=== PATIENT | male | born 1940 | race American Indian/Alaskan Native ===

== ENCOUNTER 2020-05-03 08:56 | Emergency (ER) | payer MEDICARE, OTHER ==
[2020-05-03] MEDS ORDERED: ONDANSETRON 4 MG/2 ML INJ IV ONE (11:02)
[2020-05-03] MEDS ORDERED: FAMOTIDINE 20 MG/2 ML INJ IV ONE (11:02)
--- NOTE | 2020-05-03 11:03 | Emergency Department Report ---
ED General Adult HPI - General Chief complaint: Abdominal Pain Stated complaint: GENERAL ILLNESS PUI?: No Time Seen by Provider: 05/03/20 10:45 Source: patient, EMS ([facility] RN notes reviewed, old records revi yoni Mode of arrival: Stretcher Limitations: Other (The patient is a poor historian) - History of Present Illness Initial comments: The patient was evaluated in the emergency department for symptoms described in the history of present illness. He/she was evaluated in the context of the global COVID-19 pandemic, which necessitated consideration that the patient might be at risk for infection with the virus that causes COVID-19. Institutional protocols and algorithms that pertain to the evaluation of pa tients at risk for COVID-19 are in a state of rapid change based on information released by regulatory bodies including the CDC and federal and state organizations. These policies and algorithms were followed during the patient's care in the emergency department. Please note that these policies, procedures and recommendations changed on a rapid basis. EMS documentation not available at time of chart dictation During the entire history and physical examination, I am charge aide and escorted by nurse Wendy Vaca The patient is a 79-year-old gentleman. He typically follows with the [facility]. He has a history of heart disease, hypertension, COPD, on intermittent home oxygen, high cholesterol, BPH, gout, sleep apnea, supposed to be on CPAP, arthritis, and diabetes. He presents to the ER today with a complaint of abdominal cramping, "I feels like my stomach is flip-flopping." He denies headache, neck pain, chest pain. He has chronic shortness of breath. He reportedly urinated on the stretcher prior to my personal evaluation. He reports some difficulty urinating. He believes he has dark stool, but he is not certain. His abdominal cramping is present for 1 week. He has difficulty describing qualitative nature of his symptoms, exacerbating, relieving, or radiation factors. At the moment, he is straining to urinate and a urinary basin, although he de nies testicular pain. -: days(s), week(s) Location: abdomen Quality: other Consistency: other Improves with: other Worsens with: other Associated Symptoms: other - Related Data Home Medications Medication Instructions Recorded Confirmed Last Taken Brimonidine/Timolol 0.2-0.5% 1 drop OU QHS 05/16/15 05/03/20 05/21/15 Dorzolamide-Timolol Eye Drops 1 drop OU BID 05/16/15 05/03/20 05/21/15 Finasteride 5 mg PO DAILY 05/16/15 05/03/20 05/21/15 Fosinopril Sodium 20 mg PO DAILY 05/16/15 05/03/20 05/22/15 Lasix TAB 20 mg PO DAILY 05/16/15 05/03/20 05/21/15 Metoprolol 100 mg PO DAILY 05/16/15 05/03/20 05/21/15 AtorvaSTATin [Lipitor] 40 mg PO QHS 05/03/20 05/03/20 Unknown Fosinopril Sodium 40 mg PO QDAY 05/03/20 05/03/20 Unknown Insulin NPH Hum/Reg Insulin Hm 100 unit SQ DAILY 05/03/20 05/03/20 Unknown [Novolin 70-30 Flexpen] Tamsulosin [Flomax] 0.4 mg PO QDAY 05/03/20 05/03/20 Unknown allopurinoL [Zyloprim] 300 mg PO QDAY 05/03/20 05/03/20 Unknown Previous Rx's Medication Instructions Recorded Last Taken Type Albuterol Sulfate [Proair 90 mcg IH Q4HR PRN #2 aer.pow.ba 05/03/20 Unknown Rx Respiclick] Emily Root [Emily] 250 mg PO QID PRN #30 capsule 05/03/20 Unknown Rx Ondansetron [Zofran Odt] 4 mg PO Q8HR PRN #20 tab.rapdis 05/03/20 Unknown Rx Allergies Allergy/AdvReac Type Severity Reaction Status Date / Time atenolol Allergy Anaphylaxis Verified 05/03/20 09:54 lisinopril Allergy Anaphylaxis Verified 05/03/20 09:54 Penicillins Allergy Hives Verified 05/03/20 09:17 ED Review of Systems ROS: Stated complaint: GENERAL ILLNESS Other details as noted in HPI Constitutional: denies: fever ENT: denies: congestion Respiratory: cough (Chronic cough) Cardiovascular: denies: chest pain Gastrointestinal: nausea Genitourinary: other (Urinary hesitancy) Musculoskeletal: denies: back pain (Denies acute back pain) Neurological: denies: weakness (No focal extremity weakness) Hematological/Lymphatic: denies: easy bleeding ED Past Medical Hx - Past Medical History Hx Hypertension: Yes Hx Diabetes: Yes Hx GERD: Yes Hx Arthritis: Yes Hx COPD: Yes (02/2 liters nc) - Social History Smoking Status: Never Smoker Substance Use Type: None - Medications Home Medications: Home Medications Medication Instructions Recorded Confirmed Last Taken Type Brimonidine/Timolol 0.2-0.5% 1 drop OU QHS 05/16/15 05/03/20 05/21/15 History Dorzolamide-Timolol Eye Drops 1 drop OU BID 05/16/15 05/03/20 05/21/15 History Finasteride 5 mg PO DAILY 05/16/15 05/03/20 05/21/15 History Fosinopril Sodium 20 mg PO DAILY 05/16/15 05/03/20 05/22/15 History Lasix TAB 20 mg PO DAILY 05/16/15 05/03/20 05/21/15 History Metoprolol 100 mg PO DAILY 05/16/15 05/03/20 05/21/15 History Albuterol Sulfate [Proair 90 mcg IH Q4HR PRN #2 aer.pow.ba 05/03/20 Unknown Rx Respiclick] AtorvaSTATin [Lipitor] 40 mg PO QHS 05/03/20 05/03/20 Unknown History Fosinopril Sodium 40 mg PO QDAY 05/03/20 05/03/20 Unknown History Emily Root [Emily] 250 mg PO QID PRN #30 capsule 05/03/20 Unknown Rx Insulin NPH Hum/Reg Insulin Hm 100 unit SQ DAILY 05/03/20 05/03/20 Unknown History [Novolin 70-30 Flexpen] Ondansetron [Zofran Odt] 4 mg PO Q8HR PRN #20 tab.rapdis 05/03/20 Unknown Rx Tamsulosin [Flomax] 0.4 mg PO QDAY 05/03/20 05/03/20 Unknown History allopurinoL [Zyloprim] 300 mg PO QDAY 05/03/20 05/03/20 Unknown History ED Physical Exam - General Limitations: Other (Patient is a poor historian) General appearance: alert, in no apparent distress - Head Head exam: Present: atraumatic, normocephalic - Eye Eye exam: Present: normal appearance, EOMI - ENT ENT exam: Present: normal exam, mucous membranes moist, normal external ear exam - Neck Neck exam: Present: normal inspection, full ROM. Absent: tenderness, meningismus - Respiratory Respiratory exam: Present: normal lung sounds bilaterally. Absent: respiratory distress - Cardiovascular Cardiovascular Exam: Present: regular rate, normal rhythm, normal heart sounds. Absent: bradycardia, tachycardia, irregular rhythm, systolic murmur, diastolic murmur, rubs, gallop - GI/Abdominal GI/Abdominal exam: Present: soft. Absent: distended, tenderness, guarding, rebound, rigid, pulsatile mass - Rectal Rectal exam: Present: normal inspection, normal rectal tone, heme (-) stool. Absent: heme (+) stool, black stool, bloody stool - exam: Present: normal inspection External exam: Present: normal external exam, other (Chaperoned by nurse Wendy Vaca) - Extremities Exam Extremities exam: Present: normal inspection, full ROM, pedal edema (2+ edema in the bilateral lower extremities. The patient states this is chronic.) - Back Exam Back exam: Present: normal inspection. Absent: tenderness, CVA tenderness (R), CVA tenderness (L), paraspinal tenderness, vertebral tenderness - Neurological Exam Neurological exam: Present: alert, other (No facial droop. Tongue midline. E xtraocular movements intact bilaterally. Facial sensation intact to light touch in V1, V2, V3 distribution bilaterally. 5 and a 5 strength in 4 extremities. Sensation intact to light touch in 4 extremities.) - Psychiatric Psychiatric exam: Present: anxious - Skin Skin exam: Present: warm, dry, intact, normal color. Absent: rash ED Course Vital Signs 05/03/20 05/03/20 05/03/20 09:20 10:00 10:46 Temperature 97.8 F Pulse Rate 68 Respiratory 17 Rate Blood Pressure 168/83 142/76 Blood Pressure 168/83 [Left] O2 Sat by Pulse 95 97 93 Oximetry 05/03/20 05/03/20 12:00 14:00 Temperature Pulse Rate Respiratory Rate Blood Pressure 157/71 153/69 Blood Pressure [Left] O2 Sat by Pulse 91 92 Oximetry - Reevaluation(s) Reevaluation #1: 05/03/20 12:54 Differential diagnosis, including but not limited to: Constipation, colitis, diverticulitis, BPH, urinary tract infection, obstruction, chronic lower extremity edema Assessment and plan: 79-year-old gentleman who is afebrile with reassuring vital signs with resolved tachycardia, with poorly characterized abdominal discomfort. Given advanced age, we will obtain CT scan of the abdomen pelvis. We will treat his symptoms. Laboratory studies so far are fairly unremarkable. Patient resting comfortably in his stretcher, and in no acute distress. Reevaluation #2: 05/03/20 15:28 Patient observed for hours without clinical deterioration. At the moment, saturating at 95% on room air. CT scan abdomen pelvis reviewed and appreciated. The patient has not endorsed cough, or mucus production. He has no focal pulmonary findings. curb 65 score 1 points Low risk group: 2.7% 30-day mortality. Consider outpatient treatment. Patient observed in this department for hours, without any significant respiratory distress. I also discussed the pertinent history, physical, laboratory studies and imaging findings with my hospital physician on-call, Dr. Roger James He also advises that discharged with oral antibiotics would be reasonable. I am in agreement with this plan. Clinically do not have a high suspicion for pneumonia. He will need to follow-up with his outpatient primary care doctor. 05/03/20 15:30 ED Medical Decision Making - Lab Data Result diagrams: 05/03/20 11:08 05/03/20 11:08 Vital Signs 05/03/20 09:20 Temperature 97.8 F Pulse Rate 68 Respiratory 17 Rate Blood Pressure 168/83 [Left] O2 Sat by Pulse 95 Oximetry Lab Results 05/03/20 05/03/20 05/03/20 Range/Units 11:08 11:08 11:08 WBC 8.8 (4.5-11.0) K/mm3 RBC 3.63 L (3.65-5.03) M/mm3 Hgb 11.1 L (11.8-15.2) gm/dl Hct 34.1 L (35.5-45.6) % MCV 94 (84-94) fl MCH 31 (28-32) pg MCHC 33 (32-34) % RDW 16.4 H (13.2-15.2) % Plt Count 241 (140-440) K/mm3 Lymph % (Auto) 10.8 L (13.4-35.0) % [place] % (Auto) 4.5 (0.0-7.3) % Eos % (Auto) 0.6 (0.0-4.3) % Baso % (Auto) 0.6 (0.0-1.8) % Lymph # 1.0 L (1.2-5.4) K/mm3 [place] # 0.4 (0.0-0.8) K/mm3 Eos # 0.1 (0.0-0.4) K/mm3 Baso # 0.0 (0.0-0.1) K/mm3 Seg Neutrophils % 83.5 H (40.0-70.0) % Seg Neutrophils # 7.3 (1.8-7.7) K/mm3 PT 14.6 (12.2-14.9) Sec. INR 1.12 (0.87-1.13) Sodium 136 L (137-145) mmol/L Potassium 3.6 (3.6-5.0) mmol/L Chloride 95.1 L (98-107) mmol/L Carbon Dioxide 23 (22-30) mmol/L Anion Gap 22 mmol/L BUN 15 (9-20) mg/dL Creatinine 0.8 (0.8-1.3) mg/dL Estimated GFR > 60 ml/min BUN/Creatinine Ratio 19 % Glucose 231 H (75-100) mg/dL Calcium 9.5 (8.4-10.2) mg/dL Magnesium (1.7-2.3) mg/dL Total Creatine Kinase (55-170) units/L Lipase 33 (13-60) units/L TSH (0.270-4.200) mlU/mL Urine Color (Yellow) Urine Turbidity (Clear) Urine pH (5.0-7.0) Ur Specific [place] (1.003-1.030) Urine Protein (Negative) mg/dL Urine Glucose (UA) (Negative) mg/dL Urine Ketones (Negative) mg/dL Urine Blood (Negative) Urine Nitrite (Negative) Urine Bilirubin (Negative) Urine Urobilinogen (<2.0) mg/dL Ur Leukocyte Esterase (Negative) Urine WBC (Auto) (0.0-6.0) /HPF Urine RBC (Auto) (0.0-6.0) /HPF U Epithel Cells (Auto) (0-13.0) /HPF 05/03/20 05/03/20 05/03/20 Range/Units 11:08 11:08 11:43 WBC (4.5-11.0) K/mm3 RBC (3.65-5.03) M/mm3 Hgb (11.8-15.2) gm/dl Hct (35.5-45.6) % MCV (84-94) fl MCH (28-32) pg MCHC (32-34) % RDW (13.2-15.2) % Plt Count (140-440) K/mm3 Lymph % (Auto) (13.4-35.0) % [place] % (Auto) (0.0-7.3) % Eos % (Auto) (0.0-4.3) % Baso % (Auto) (0.0-1.8) % Lymph # (1.2-5.4) K/mm3 [place] # (0.0-0.8) K/mm3 Eos # (0.0-0.4) K/mm3 Baso # (0.0-0.1) K/mm3 Seg Neutrophils % (40.0-70.0) % Seg Neutrophils # (1.8-7.7) K/mm3 PT (12.2-14.9) Sec. INR (0.87-1.13) Sodium (137-145) mmol/L Potassium (3.6-5.0) mmol/L Chloride (98-107) mmol/L Carbon Dioxide (22-30) mmol/L Anion Gap mmol/L BUN (9-20) mg/dL Creatinine (0.8-1.3) mg/dL Estimated GFR ml/min BUN/Creatinine Ratio % Glucose (75-100) mg/dL Calcium (8.4-10.2) mg/dL Magnesium 1.90 (1.7-2.3) mg/dL Total Creatine Kinase 55 (55-170) units/L Lipase (13-60) units/L TSH 0.473 (0.270-4.200) mlU/mL Urine Color Straw (Yellow) Urine Turbidity Hazy (Clear) Urine pH 7.0 (5.0-7.0) Ur Specific [place] 1.008 (1.003-1.030) Urine Protein <15 mg/dl (Negative) mg/dL Urine Glucose (UA) 150 (Negative) mg/dL Urine Ketones 20 (Negative) mg/dL Urine Blood Lg (Negative) Urine Nitrite Neg (Negative) Urine Bilirubin Neg (Negative) Urine Urobilinogen < 2.0 (<2.0) mg/dL Ur Leukocyte Esterase Neg (Negative) Urine WBC (Auto) 1.0 (0.0-6.0) /HPF Urine RBC (Auto) 90.0 (0.0-6.0) /HPF U Epithel Cells (Auto) 1.0 (0-13.0) /HPF - EKG Data -: EKG Interpreted by [place] EKG shows normal: sinus rhythm Rate: normal - EKG Data When compared to previous EKG there are: previous EKG unavailable 05/03/20 12:50 EKG today shows sinus rhythm, tachycardia, normal axis, QTC is prolonged, motion artifact, not a STEMI. The EKG is abnormal. - Radiology Data Radiology results: report reviewed, image reviewed ABDOMEN 2 VIEWS INDICATION / CLINICAL INFORMATION: Abdominal Pain. COMPARISON: None available. FINDINGS: TUBES / LINES: None. BOWEL GAS PATTERN: The stomach is moderately distended by gas. No dilated small bowel/colonic loops. FREE AIR / EXTRALUMINAL GAS: None seen. ADDITIONAL FINDINGS: There is moderate lumbar spondylosis with severe left hip arthritis. A right hip arthroplasty is unremarkable as visualized. CHEST: Visualized chest shows no significant abnormality. IMPRESSION: Nonspecific moderate gastric distention. Signer Name: Bradford Ingram MD Signed: 05/03/2020 10:49 AM Workstation Name: [id number] CT ABDOMEN AND PELVIS WITH CONTRAST INDICATION / CLINICAL INFORMATION: acute abd pain. TECHNIQUE: Axial CT images were obtained through the abdomen and pelvis after 100 cc of Omnipaque 300 IV contrast. Sagittal and coronal reformatted images. All CT scans at this location are performed using CT dose reduction for ALARA by means of automated exposure control. COMPARISON: None available. FINDINGS: LOWER CHEST: A rounded infiltrate in the left lower lobe measuring up to 3.7 cm is partially imaged. The right lung base is clear. LIVER: No significant abnormality. GALLBLADDER: Multiple calcified gallstones measuring up to 8 mm. No biliary dilatation or inflammation. BILE DUCTS: No significant abnormality. PANCREAS: Mildly atrophic. A 2.1 cm well-circumscribed solid enhancing lesion is identified in the tail of the pancreas. This is unchanged since CT chest dated 08/27/2018. SPLEEN: No significant abnormality. ADRENALS: No significant abnormality. RIGHT KIDNEY and URETER: There is mild multifocal cortical scarring throughout the right kidney. No focal lesion or nephrolithiasis. LEFT KIDNEY and URETER: 2 simple appearing left renal cysts measure up to 1.5 cm. STOMACH and SMALL BOWEL: No significant abnormality. COLON: Mild diverticulosis of the distal colon is evident. No inflammatory changes. APPENDIX: No significant abnormality. PERITONEUM: No free fluid. No free air. No fluid collection. LYMPH NODES: An enlarged and enhancing right external iliac lymph node measures 2.3 x 2.7 cm. An enlarged right retrocrural lymph node measures 1.4 cm in short axis. An enlarged left retrocrural lymph node measures 2.4 cm in short axis. No additional adenopathy is detected. AORTA and ARTERIES: Mild diffuse calcifications in the aorta. No aneurysm or stenosis. IVC and VEINS: No significant abnormality. URINARY BLADDER: The bladder is mildly distended. No filling defect or wall abnormality. REPRODUCTIVE ORGANS: No significant abnormality. ADDITIONAL FINDINGS: None. SKELETAL SYSTEM: Mild thoracolumbar spondylosis. Stable appearance of the right hip prosthesis. IMPRESSION: Left lower lobe infiltrate concerning for pneumonia, partially imaged. Cholelithiasis. 2.1 cm solid lesion in the tail the pancreas which is unchanged since the previous CT chest. The etiology of this is unclear. Enlarged lymph nodes in the retrocrural chains and right external iliac chain. A neoplastic process cannot be excluded. Diverticulosis of the distal colon. No acute inflammatory process is appreciated in the abdomen. Signer Name: William Freeman Jr, MD Signed: 05/03/2020 1:00 PM Workstation Name: [id number] Critical care attestation.: If time is entered above; I have spent that time in minutes in the direct care of this critically ill patient, excluding procedure time. ED Disposition Clinical Impression: Urinary hesitancy, Abdominal discomfort, Dependent edema, Pulmonary infiltrate, Abnormal abdominal CT scan Disposition: DC-01 TO HOME OR SELFCARE Is pt being admited?: No Does the pt Need Aspirin: No Condition: Stable Additional Instructions: Do not take metformin medication for the next 2 days, if patient takes this medication. Cultures were sent today, and results will be available in the next 3 to 5 days. Please have a primary care doctor contact the medical record department to obtain culture results. Please follow-up with your primary care doctor within the next 3 to 5 days for repeat checkup/evaluation. Patient had CT scan of the abdomen pelvis today which demonstrated a number of abnormalities which need to be followed up by a primary care doctor to evaluate for potential cancer, tumor, malignancy. Take the antibiotics as directed, continue current outpatient medications otherwise, take the breathing medication as needed/directed. Advance diet as tolerated, avoid consumption of Motrin, ibuprofen, Naprosyn, Aleve, heavy and spicy foods. Please return to the emergency room right away with new pain, worsening pain, migration of pain, intractable vomiting, change in mental status, confusion, inability to tolerate liquid feeds, new, worsened or different symptoms not present on the initial emergency room evaluation Referrals: YADIEL COX MD [Staff Physician] - 3-5 Days KENDALL PABON MD [Staff Physician] - 3-5 Days
[2020-05-03 11:51] LABS: Bilirubin,Urine NEG (Negative); Blood,Urine LG (Negative); Color,Urine Straw (Yellow); Protein,Urine <15 mg/dL mg/dL (Negative); Urobilinogen,Urine < 2.0 mg/dL (<2.0)
--- NOTE | 2020-05-03 11:54 | XRay Report ---
ABDOMEN 2 VIEWS INDICATION / CLINICAL INFORMATION: Abdominal Pain. COMPARISON: None available. FINDINGS: TUBES / LINES: None. BOWEL GAS PATTERN: The stomach is moderately distended by gas. No dilated small bowel/colonic loops. FREE AIR / EXTRALUMINAL GAS: None seen. ADDITIONAL FINDINGS: There is moderate lumbar spondylosis with severe left hip arthritis. A right hip arthroplasty is unremarkable as visualized. CHEST: Visualized chest shows no significant abnormality. IMPRESSION: Nonspecific moderate gastric distention. Signer Name: Bradford Ingram MD Signed: 05/03/2020 11:49 AM Workstation Name: [id number]
[2020-05-03 12:05] LABS: Basophils % (Auto) 0.6 % (0.0-1.8); Eosinophils # (Auto) 0.1 K/mm3 (0.0-0.4); Eosinophils % (Auto) 0.6 % (0.0-4.3); Hematocrit 34.1 % (35.5-45.6); Hemoglobin 11.1 gm/dl (11.8-15.2); Lymphocytes % (Auto) 10.8 % (13.4-35.0); Mean Corpuscular HGB Conc 33 % (32-34); Mean Corpuscular Volume 94 fl (84-94); Monocytes # (Auto) 0.4 K/mm3 (0.0-0.8); Monocytes % (Auto) 4.5 % (0.0-7.3); Platelet Count 241 K/mm3 (140-440); Red Blood Count 3.63 M/mm3 (3.65-5.03); Red Cell Distribution Width 16.4 % (13.2-15.2)
[2020-05-03 12:14] LABS: INR 1.12 (0.87-1.13)
[2020-05-03 12:24] LABS: BUN/Creatinine Ratio 19; Blood Urea Nitrogen 15 mg/dL (9-20); Calcium 9.5 mg/dL (8.4-10.2); Hemolysis Index 13
--- NOTE | 2020-05-03 14:04 | Cat Scan Report ---
CT ABDOMEN AND PELVIS WITH CONTRAST INDICATION / CLINICAL INFORMATION: acute abd pain. TECHNIQUE: Axial CT images were obtained through the abdomen and pelvis after 100 cc of Omnipaque 300 IV contras t. Sagittal and coronal reformatted images. All CT scans at this location are performed using CT dose reduction for ALARA by means of automated exposure control. COMPARISON: None available. FINDINGS: LOWER CHEST: A rounded infiltrate in the left lower lobe measuring up to 3.7 cm is partially imaged. The right lung base is clear. LIVER: No significant abnormality. GALLBLADDER: Multiple calcified gallstones measuring up to 8 mm. No biliary dilatation or inflammatio n. BILE DUCTS: No significant abnormality. PANCREAS: Mildly atrophic. A 2.1 cm well-circumscribed solid enhancing lesion is identified in the ta il of the pancreas. This is unchanged since CT chest dated 08/27/2018. SPLEEN: No significant abnormality. ADRENALS: No significant abnormality. RIGHT KIDNEY and URETER: There is mild multifocal cortical scarring throughout the right kidney. No f ocal lesion or nephrolithiasis. LEFT KIDNEY and URETER: 2 simple appearing left renal cysts measure up to 1.5 cm. STOMACH and SMALL BOWEL: No significant abnormality. COLON: Mild diverticulosis of the distal colon is evident. No inflammatory changes. APPENDIX: No significant abnormality. PERITONEUM: No free fluid. No free air. No fluid collection. LYMPH NODES: An enlarged and enhancing right external iliac lymph node measures 2.3 x 2.7 cm. An enla rged right retrocrural lymph node measures 1.4 cm in short axis. An enlarged left retrocrural lymph n ode measures 2.4 cm in short axis. No additional adenopathy is detected. AORTA and ARTERIES: Mild diffuse calcifications in the aorta. No aneurysm or stenosis. IVC and VEINS: No significant abnormality. URINARY BLADDER: The bladder is mildly distended. No filling defect or wall abnormality. REPRODUCTIVE ORGANS: No significant abnormality. ADDITIONAL FINDINGS: None. SKELETAL SYSTEM: Mild thoracolumbar spondylosis. Stable appearance of the right hip prosthesis. IMPRESSION: Left lower lobe infiltrate concerning for pneumonia, partially imaged. Cholelithiasis. 2.1 cm solid lesion in the tail the pancreas which is unchanged since the previous CT chest. The etio logy of this is unclear. Enlarged lymph nodes in the retrocrural chains and right external iliac chain. A neoplastic process c annot be excluded. Diverticulosis of the distal colon. No acute inflammatory process is appreciated in the abdomen. Signer Name: William Freeman Jr, MD Signed: 05/03/2020 2:00 PM Workstation Name: [id number]
[2020-05-03] MEDS ORDERED: levoFLOXacin 500 MG TAB PO ONE (15:34)
[2020-05-03 17:22] VITALS: BP 154/80
== END 2020-05-03 17:23 | disposition home or self-care (01) ==
LOC: ED 08:56
DX: R39.11 Hesitancy of micturition (principal); R60.9 Edema, unspecified; R91.8 Other nonspecific abnormal finding of lung field; R10.9 Unspecified abdominal pain; I10 Essential (primary) hypertension; K21.9 Gastro-esophageal reflux disease without esophagitis; E11.9 Type 2 diabetes mellitus without complications; J44.9 Chronic obstructive pulmonary disease, unspecified; M19.91 Primary osteoarthritis, unspecified site; Z79.4 Long term (current) use of insulin; Z79.899 Other long term (current) drug therapy; Z88.0 Allergy status to penicillin; Z88.8 Allergy status to other drugs, medicaments and biological substances
CPT/HCPCS: 36415; 74019; 74177; 80048; 81001; 82550; 83690; 83735; 84443; 85025; 85610; 87086; 93005; 96374; 96375; 99285; J2405; Q9967

== ENCOUNTER 2020-05-05 19:59 | Emergency (ER) | payer MEDICARE, OTHER ==
--- NOTE | 2020-05-05 20:16 | Emergency Department Report ---
ED General Adult HPI - General Chief complaint: Medical Clearance Stated complaint: constipation PUI?: No Time Seen by Provider: 05/05/20 20:11 Source: patient, EMS Mode of arrival: Stretcher Limitations: No Limitations - History of Present Illness Initial comments: Patient is a 79-year-old male that presents emergency room with complaints of constipation. Patient states his last bowel movement was 5 days ago. Patient states his home health nurse was at the house and sent him here via EMS. Patient states he took an oral medication and a suppository and no bowel movement today. Patient denies nausea and vomiting. Patient denies fever and chills. Patient denies abdominal pain. Patient denies chest pain or shortness of breath. Patient denies dysuria. Patient denies blood per rectum. Patient brought in by EMS. Report received from EMS. EMS states that the patient was given Epson salts drink and a suppository and patient did not have a bowel movement. Patient's vital signs stable during transport. Patient had no complaints to EMS. Patient lives at home with . EMS states that the patient has home health and the home health nurse called EMS transport. Patient denies recent travel. Patient denies recent international travel. Patient denies exposure to the novel coronavirus. Patient denies sick contacts. Patient denies fever and chills. Patient denies cough. Patient denies diarrhea. Patient denies coming in contact with anybody with symptoms of the novel coronavirus. -: Sudden Severity scale (0 -10): 0 Consistency: constant Improves with: none Worsens with: none Associated Symptoms: denies: confusion, chest pain, cough, diaphoresis, fever/chills, headaches, loss of appetite, malaise, nausea/vomiting, rash, seizure, shortness of breath, syncope, weakness Treatments Prior to Arrival: other (Suppository) - Related Data Home Medications Medication Instructions Recorded Confirmed Last Taken Brimonidine/Timolol 0.2-0.5% 1 drop OU QHS 05/16/15 05/03/20 05/21/15 Dorzolamide-Timolol Eye Drops 1 drop OU BID 05/16/15 05/03/20 05/21/15 Finasteride 5 mg PO DAILY 05/16/15 05/03/20 05/21/15 Fosinopril Sodium 20 mg PO DAILY 05/16/15 05/03/20 05/22/15 Lasix TAB 20 mg PO DAILY 05/16/15 05/03/20 05/21/15 Metoprolol 100 mg PO DAILY 05/16/15 05/03/20 05/21/15 AtorvaSTATin [Lipitor] 40 mg PO QHS 05/03/20 05/03/20 Unknown Fosinopril Sodium 40 mg PO QDAY 05/03/20 05/03/20 Unknown Insulin NPH Hum/Reg Insulin Hm 100 unit SQ DAILY 05/03/20 05/03/20 Unknown [Novolin 70-30 Flexpen] Tamsulosin [Flomax] 0.4 mg PO QDAY 05/03/20 05/03/20 Unknown allopurinoL [Zyloprim] 300 mg PO QDAY 05/03/20 05/03/20 Unknown Previous Rx's Medication Instructions Recorded Last Taken Type Albuterol Sulfate [Proair 90 mcg IH Q4HR PRN #2 [email or web address] 05/03/20 Unknown Rx Respiclick] Emily Root [Emily] 250 mg PO QID PRN #30 capsule 05/03/20 Unknown Rx levoFLOXacin [Levaquin TAB] 500 mg PO QDAY #5 tablet 05/03/20 Unknown Rx Sennosides/Docusate Sodium 1 each PO BID #30 tablet 05/05/20 Unknown Rx [Senna-S 8.6-50 mg Tablet] Allergies Allergy/AdvReac Type Severity Reaction Status Date / Time atenolol Allergy Anaphylaxis Verified 05/03/20 09:54 lisinopril Allergy Anaphylaxis Verified 05/03/20 09:54 Penicillins Allergy Hives Verified 05/03/20 09:17 ED Review of Systems ROS: Stated complaint: ABD PAIN Other details as noted in HPI Constitutional: denies: chills, fever Eyes: denies: eye pain, eye discharge, vision change ENT: denies: ear pain, throat pain Respiratory: denies: cough, shortness of breath, wheezing Cardiovascular: denies: chest pain, palpitations Endocrine: no symptoms reported Gastrointestinal: constipation. denies: abdominal pain, nausea, vomiting, diarrhea, hematemesis, melena, hematochezia Genitourinary: denies: urgency, dysuria Musculoskeletal: denies: back pain, joint swelling, arthralgia Skin: denies: rash, lesions Neurological: denies: headache, weakness, paresthesias Psychiatric: denies: anxiety, depression Hematological/Lymphatic: denies: easy bleeding, easy bruising ED Past Medical Hx - Past Medical History Previous Medical History?: Yes Hx Hypertension: Yes Hx Diabetes: Yes Hx GERD: Yes Hx Arthritis: Yes Hx COPD: Yes (022 liters nc) - Surgical History Past Surgical History?: No - Family History Family history: no significant - Social History Smoking Status: Never Smoker Substance Use Type: None - Medications Home Medications: Home Medications Medication Instructions Recorded Confirmed Last Taken Type Brimonidine/Timolol 0.2-0.5% 1 drop OU QHS 05/16/15 05/03/20 05/21/15 History Dorzolamide-Timolol Eye Drops 1 drop OU BID 05/16/15 05/03/20 05/21/15 History Finasteride 5 mg PO DAILY 05/16/15 05/03/20 05/21/15 History Fosinopril Sodium 20 mg PO DAILY 05/16/15 05/03/20 05/22/15 History Lasix TAB 20 mg PO DAILY 05/16/15 05/03/20 05/21/15 History Metoprolol 100 mg PO DAILY 05/16/15 05/03/20 05/21/15 History Albuterol Sulfate [Proair 90 mcg IH Q4HR PRN #2 [email or web address] 05/03/20 Unknown Rx Respiclick] AtorvaSTATin [Lipitor] 40 mg PO QHS 05/03/20 05/03/20 Unknown History Fosinopril Sodium 40 mg PO QDAY 05/03/20 05/03/20 Unknown History Emily Root [Emily] 250 mg PO QID PRN #30 capsule 05/03/20 Unknown Rx Insulin NPH Hum/Reg Insulin Hm 100 unit SQ DAILY 05/03/20 05/03/20 Unknown History [Novolin 70-30 Flexpen] Tamsulosin [Flomax] 0.4 mg PO QDAY 05/03/20 05/03/20 Unknown History allopurinoL [Zyloprim] 300 mg PO QDAY 05/03/20 05/03/20 Unknown History levoFLOXacin [Levaquin TAB] 500 mg PO QDAY #5 tablet 05/03/20 Unknown Rx Sennosides/Docusate Sodium 1 each PO BID #30 tablet 05/05/20 Unknown Rx [Senna-S 8.6-50 mg Tablet] ED Physical Exam - General Limitations: No Limitations General appearance: alert, in no apparent distress - Head Head exam: Present: atraumatic, normocephalic - Eye Eye exam: Present: normal appearance, PERRL Pupils: Present: normal accommodation - ENT ENT exam: Present: mucous membranes moist - Neck Neck exam: Present: normal inspection - Respiratory Respiratory exam: Present: normal lung sounds bilaterally. Absent: respiratory distress, wheezes, rales - Cardiovascular Cardiovascular Exam: Present: regular rate, normal rhythm. Absent: systolic murmur, diastolic murmur, rubs, gallop - GI/Abdominal GI/Abdominal exam: Present: soft, normal bowel sounds. Absent: distended, tenderness, guarding, rebound, rigid - Rectal Rectal exam: Present: deferred - Extremities Exam Extremities exam: Present: normal inspection - Back Exam Back exam: Present: normal inspection - Neurological Exam Neurological exam: Present: alert, oriented X3 - Psychiatric Psychiatric exam: Present: normal affect, normal mood - Skin Skin exam: Present: warm, dry, intact, normal color. Absent: rash ED Course Vital Signs 05/05/20 20:36 Temperature 97.7 F Pulse Rate 87 Respiratory 18 Rate Blood Pressure 127/57 [Left] O2 Sat by Pulse 95 Oximetry - Reevaluation(s) Reevaluation #1: Patient had a large soft bowel movement. No blood noted in stool. Hemoccult negative. 05/05/20 20:45 Reevaluation #2: I discussed all results and clinical findings with patient. I discussed plan of care with patient. Patient agrees with plan of care. Patient is stable for discharge. Patient will be discharged home. Patient given discharge instructions. Patient voiced understanding of discharge instructions. 05/05/20 21:30 Reevaluation #3: Patient had another large bowel movement. 05/05/20 22:07 ED Medical Decision Making - Radiology Data Radiology results: report reviewed interpreted by me: Flat plate abdominal x-ray: No obstruction noted. Right hip prosthesis noted. No fractures noted. ABDOMEN 1 VIEW INDICATION / CLINICAL INFORMATION: Constipation. COMPARISON: 05/03/20. FINDINGS: TUBES / LINES: None. BOWEL GAS PATTERN: There is mild gaseous distention of the stomach, significantly improved. I see no evidence of bowel obstruction or mass effect. No significant stool is present in the colon on the current exam. FREE AIR / EXTRALUMINAL GAS: None seen. ADDITIONAL FINDINGS: There are degenerative changes involving the lumbar spine and left hip. A right hip prosthesis is present. IMPRESSION: 1. No significant stool in the colon. 2. Gaseous distention of the stomach has improved since the prior study performed 2 days ago. - Medical Decision Making Patient is a 79-year-old male that presents emergency room with complaints of constipation. Patient denied any other symptoms. Patient denied abdominal pain and nausea and vomiting. Patient had a benign physical exam. Patient had a CT scan and a flat plate on 05/03/2020. Patient's chart was reviewed from 05/03/2020. Patient had a repeat flatplate and it did not show any obstruction. While the patient was in the ER, the patient had a bowel movement. Patient's bowel movement was large and soft and there was no blood noted and Hemoccult was negative. Patient stable for discharge. Patient given discharge instructions. Patient will be discharged back home. - Differential Diagnosis Constipation Critical care attestation.: If time is entered above; I have spent that time in minutes in the direct care of this critically ill patient, excluding procedure time. ED Disposition Clinical Impression: Constipation Qualifiers: Constipation type: unspecified constipation type Qualified Code(s): K59.00 - Constipation, unspecified Disposition: TO HOME OR SELFCARE Is pt being admited?: No Does the pt Need Aspirin: No Condition: Stable Instructions: Constipation (ED), High Fiber Diet (ED), Obstipation (ED) Additional Instructions: Patient to follow-up with primary care in 2 to 3 days. Patient to follow-up [facility] in 2 to 3 days. Patient to rest. Patient to increase water. Patient to take Tylenol or ibuprofen as needed for pain. Patient to take meds as directed. Patient to return to the ER if condition worsens, changes or new symptoms arise. Prescriptions: Sennosides/Docusate Sodium [Senna-S 8.6-50 mg Tablet] 1 each PO BID #30 tablet Referrals: PRIMARY CARE, [Primary Care Provider] - 2-3 Days VICENTA WALLER MD [Staff Physician] - 2-3 Days Time of Disposition: 21:36
[2020-05-05 20:37] VITALS: BP 127/57
--- NOTE | 2020-05-05 20:58 | XRay Report ---
ABDOMEN 1 VIEW INDICATION / CLINICAL INFORMATION: Constipation. COMPARISON: 05/03/20. FINDINGS: TUBES / LINES: None. BOWEL GAS PATTERN: There is mild gaseous distention of the stomach, significantly improved. I see no evidence of bowel obstruction or mass effect. No significant stool is present in the colon on the cur rent exam. FREE AIR / EXTRALUMINAL GAS: None seen. ADDITIONAL FINDINGS: There are degenerative changes involving the lumbar spine and left hip. A right hip prosthesis is present. IMPRESSION: 1. No significant stool in the colon. 2. Gaseous distention of the stomach has improved since the prior study performed 2 days ago. Signer Name: Jagdeep Nam MD Signed: 05/05/2020 8:53 PM Workstation Name: [id number]
== END 2020-05-06 09:56 | disposition home or self-care (01) ==
LOC: ED 19:59
DX: K59.00 Constipation, unspecified (principal); I10 Essential (primary) hypertension; E11.9 Type 2 diabetes mellitus without complications; K21.9 Gastro-esophageal reflux disease without esophagitis; M13.88 Other specified arthritis, other site; J44.9 Chronic obstructive pulmonary disease, unspecified; Z79.899 Other long term (current) drug therapy; Z88.0 Allergy status to penicillin; Z88.6 Allergy status to analgesic agent
CPT/HCPCS: 74018; 99283

== ENCOUNTER 2020-05-18 19:17 | Observation (INO) | payer MEDICARE, OTHER ==
[2020-05-18] MEDS ORDERED: SODIUM CHLORIDE 0.9% 1000 ML 1,000 ML ONE (19:28)
[2020-05-18] MEDS ORDERED: SODIUM CHLORIDE 0.9% 1000 ML 1,000 ML IV ONE (19:35)
--- NOTE | 2020-05-18 19:41 | Emergency Department Report ---
ED Altered Mental Status HPI - General Chief Complaint: Overdose Stated Complaint: UNRESPONSIVE/POSS OD Time Seen by Provider: 05/18/20 19:35 Source: patient, EMS Mode of arrival: Stretcher Limitations: Altered Mental Status - History of Present Illness Initial Comments: Patient is 79 years old male with history of recent CVA right-sided weakness, hypertension, diabetes and COPD. Patient brought to the emergency room via EMS from home for evaluation of decreased responsiveness. Patient was found sleeping in his chair with decreased responsiveness per family report. EMS stated that when they arrived patient is in his chair but he is start answering questions. EMS stated that I gave patient Narcan and patient started becoming more awake however patient found to have a blood pressure of 86/45. Patient started on normal saline. Upon arrival to the ER patient is alert and answering questions appropriately. His blood pressure improved to 96/52. Patient stated that he took his water pill and his metoprolol. He stated that he checked his blood pressure before that and it was 88/46. Patient denied any headache. No new focal weakness, numbness or tingling sensation. Patient denied any chest pain or shortness of breath. Patient also denied any fever, chills, cough, abdominal pain, nausea or vomiting. MD Complaint: decreased responsiveness -: unknown Severity: moderate Associated Symptoms: denies other symptoms - Related Data Home Medications Medication Instructions Recorded Confirmed Last Taken Brimonidine/Timolol 0.2-0.5% 1 drop OU QHS 05/16/15 05/09/20 05/21/15 Lasix TAB 20 mg PO DAILY 05/16/15 05/09/20 05/21/15 Metoprolol 100 mg PO DAILY 05/16/15 05/09/20 05/21/15 AtorvaSTATin [Lipitor] 40 mg PO QHS 05/03/20 05/09/20 Unknown Fosinopril Sodium 40 mg PO QDAY 05/03/20 05/09/20 Unknown Albuterol Sulfate [Proair 90 mcg INHALATION PRN 05/09/20 05/09/20 Unknown Respiclick] Plavix 75 mg PO DAILY 05/09/20 05/09/20 Unknown Previous Rx's Medication Instructions Recorded Last Taken Type Albuterol Sulfate [Proair 90 mcg IH Q4HR PRN #2 aer.[email or web address] 05/03/20 Unknown Rx Respiclick] Brimonidine/Timolol 0.2-0.5% 1 drops OU QHS bottle 05/12/20 Unknown Rx [Combigan 0.2-0.5%] Clopidogrel [Plavix] 75 mg PO DAILY tablet 05/12/20 Unknown Rx Famotidine [Pepcid] 20 mg PO BID tablet 05/12/20 Unknown Rx Finasteride [Proscar] 5 mg PO DAILY tablet 05/12/20 Unknown Rx Insulin NPH Hum/Reg Insulin Hm 15 unit SQ BID 30 Days #1 vial 05/12/20 Unknown Rx [Novolin 70-30 Flexpen] Sennosides/Docusate [Senokot S] 1 tab PO BID tablet 05/12/20 Unknown Rx Tamsulosin [Flomax] 0.4 mg PO QDAY capsule 05/12/20 Unknown Rx allopurinoL [Zyloprim] 300 mg PO QDAY tablet 05/12/20 Unknown Rx oxyCODONE /ACETAMINOPHEN [Percocet 1 tab PO Q6H PRN tablet 05/12/20 Unknown Rx 5/325 mg] Allergies Allergy/AdvReac Type Severity Reaction Status Date / Time atenolol Allergy Anaphylaxis Verified 05/09/20 18:49 lisinopril Allergy Anaphylaxis Verified 05/09/20 18:49 Penicillins Allergy Hives Verified 05/09/20 18:49 ED Review of Systems ROS: Stated complaint: UNRESPONSIVE/POSS OD Other details as noted in HPI Comment: All other systems reviewed and negative Constitutional: denies: chills, fever Respiratory: denies: cough, shortness of breath Cardiovascular: denies: chest pain, palpitations Gastrointestinal: denies: abdominal pain, nausea, vomiting, diarrhea, constipation, hematemesis, melena, hematochezia Musculoskeletal: denies: back pain Neurological: weakness (Generalized). denies: headache, numbness, paresthesias, confusion, abnormal gait ED Past Medical Hx - Past Medical History Hx Hypertension: Yes Hx CVA: Yes (CVA Right Sided Deficits) Hx Diabetes: Yes Hx GERD: Yes Hx Arthritis: Yes Hx COPD: Yes (09/26 liters nc) - Social History Smoking Status: Unknown if ever smoked - Medications Home Medications: Home Medications Medication Instructions Recorded Confirmed Last Taken Type Brimonidine/Timolol 0.2-0.5% 1 drop OU QHS 05/16/15 05/09/20 05/21/15 History Lasix TAB 20 mg PO DAILY 05/16/15 05/09/20 05/21/15 History Metoprolol 100 mg PO DAILY 05/16/15 05/09/20 05/21/15 History Albuterol Sulfate [Proair 90 mcg IH Q4HR PRN #2 aer.[email or web address] 05/03/20 05/09/20 Unknown Rx Respiclick] AtorvaSTATin [Lipitor] 40 mg PO QHS 05/03/20 05/09/20 Unknown History Fosinopril Sodium 40 mg PO QDAY 05/03/20 05/09/20 Unknown History Albuterol Sulfate [Proair 90 mcg INHALATION PRN 05/09/20 05/09/20 Unknown History Respiclick] Plavix 75 mg PO DAILY 05/09/20 05/09/20 Unknown History Brimonidine/Timolol 0.2-0.5% 1 drops OU QHS bottle 05/12/20 Unknown Rx [Combigan 0.2-0.5%] Clopidogrel [Plavix] 75 mg PO DAILY tablet 05/12/20 Unknown Rx Famotidine [Pepcid] 20 mg PO BID tablet 05/12/20 Unknown Rx Finasteride [Proscar] 5 mg PO DAILY tablet 05/12/20 Unknown Rx Insulin NPH Hum/Reg Insulin Hm 15 unit SQ BID 30 Days #1 vial 05/12/20 Unknown Rx [Novolin 70-30 Flexpen] Sennosides/Docusate [Senokot S] 1 tab PO BID tablet 05/12/20 Unknown Rx Tamsulosin [Flomax] 0.4 mg PO QDAY capsule 05/12/20 Unknown Rx allopurinoL [Zyloprim] 300 mg PO QDAY tablet 05/12/20 Unknown Rx oxyCODONE /ACETAMINOPHEN [Percocet 1 tab PO Q6H PRN tablet 05/12/20 Unknown Rx 5/325 mg] ED Physical Exam - General Limitations: Altered Mental Status General appearance: alert, in no apparent distress - Head Head exam: Present: atraumatic, normocephalic, normal inspection - Eye Eye exam: Present: normal appearance - ENT ENT exam: Present: normal exam, normal orophraynx, mucous membranes moist - Neck Neck exam: Present: normal inspection, full ROM. Absent: tenderness, meningismus, lymphadenopathy, thyromegaly - Respiratory Respiratory exam: Present: normal lung sounds bilaterally - Cardiovascular Cardiovascular Exam: Present: regular rate, normal rhythm, normal heart sounds - GI/Abdominal GI/Abdominal exam: Present: soft, normal bowel sounds. Absent: distended, t enderness, guarding, rebound, rigid, organomegaly, mass, bruit, pulsatile mass, hernia - Extremities Exam Extremities exam: Present: normal inspection, full ROM, normal capillary refill. Absent: calf tenderness - Back Exam Back exam: Present: normal inspection, full ROM. Absent: CVA tenderness (R), CVA tenderness (L) - Neurological Exam Neurological exam: Present: alert, oriented X3, CN II-XII intact, motor sensory deficit (chronic ,right leg ) - Psychiatric Psychiatric exam: Present: normal mood - Skin Skin exam: Present: warm, intact, normal color ED Course Vital Signs 05/18/20 05/18/20 05/18/20 19:17 19:30 19:45 Temperature Pulse Rate 80 76 Respiratory 15 15 Rate Blood Pressure 86/46 92/50 96/49 O2 Sat by Pulse 97 95 Oximetry 05/18/20 05/18/20 05/18/20 19:53 20:00 20:02 Temperature 98.1 F Pulse Rate 78 Respiratory 14 17 Rate Blood Pressure 104/53 O2 Sat by Pulse 94 97 Oximetry 05/18/20 05/18/20 05/18/20 20:15 20:39 20:45 Temperature Pulse Rate 76 79 77 Respiratory 14 14 Rate Blood Pressure 96/53 96/53 106/51 O2 Sat by Pulse 93 96 Oximetry 05/18/20 05/18/20 05/18/20 21:00 21:15 21:30 Temperature Pulse Rate 76 79 76 Respiratory 13 12 14 Rate Blood Pressure 109/58 106/50 102/48 O2 Sat by Pulse 95 93 94 Oximetry 05/18/20 05/18/20 21:45 22:00 Temperature Pulse Rate 79 84 Respiratory 15 16 Rate Blood Pressure 103/51 112/51 O2 Sat by Pulse 93 78 L Oximetry - Lab Data Result diagrams: 05/18/20 20:01 05/18/20 20:01 Lab Results 05/18/20 05/18/20 05/18/20 Range/Units 20:01 20:01 20:01 WBC 12.9 H (4.5-11.0) K/mm3 RBC 3.61 L (3.65-5.03) M/mm3 Hgb 11.1 L (11.8-15.2) gm/dl Hct 33.7 L (35.5-45.6) % MCV 93 (84-94) fl MCH 31 (28-32) pg MCHC 33 (32-34) % RDW 16.2 H (13.2-15.2) % Plt Count 294 (140-440) K/mm3 Lymph % (Auto) 12.3 L (13.4-35.0) % [place] % (Auto) 8.3 H (0.0-7.3) % Eos % (Auto) 3.4 (0.0-4.3) % Baso % (Auto) 0.7 (0.0-1.8) % Lymph # (Auto) 1.6 (1.2-5.4) K/mm3 [place] # (Auto) 1.1 H (0.0-0.8) K/mm3 Eos # (Auto) 0.4 (0.0-0.4) K/mm3 Baso # (Auto) 0.1 (0.0-0.1) K/mm3 Seg Neutrophils % 75.3 H (40.0-70.0) % Seg Neutrophils # 9.7 H (1.8-7.7) K/mm3 PT 15.5 H (12.2-14.9) Sec. INR 1.21 H (0.87-1.13) APTT 29.2 (24.2-36.6) Sec. Sodium (137-145) mmol/L Potassium (3.6-5.0) mmol/L Chloride (98-107) mmol/L Carbon Dioxide (22-30) mmol/L Anion Gap mmol/L BUN (9-20) mg/dL Creatinine (0.8-1.3) mg/dL Estimated GFR ml/min BUN/Creatinine Ratio % Glucose (75-100) mg/dL Lactic Acid 1.80 (0.7-2.0) mmol/L Calcium (8.4-10.2) mg/dL Total Bilirubin (0.1-1.2) mg/dL Direct Bilirubin (0-0.2) mg/dL Indirect Bilirubin mg/dL AST (5-40) units/L ALT (7-56) units/L Alkaline Phosphatase (35-129) units/L Ammonia (25-60) umol/L Total Creatine Kinase (55-170) units/L Troponin T (0.00-0.029) ng/mL Total Protein (6.3-8.2) g/dL Albumin (3.9-5) g/dL Albumin/Globulin Ratio % Triglycerides (2-149) mg/dL Cholesterol (50-199) mg/dL LDL Cholesterol Direct (50-130) mg/dL HDL Cholesterol (40-59) mg/dL Cholesterol/HDL Ratio % 05/18/20 05/18/20 Range/Units 20:01 20:01 WBC (4.5-11.0) K/mm3 RBC (3.65-5.03) M/mm3 Hgb (11.8-15.2) gm/dl Hct (35.5-45.6) % MCV (84-94) fl MCH (28-32) pg MCHC (32-34) % RDW (13.2-15.2) % Plt Count (140-440) K/mm3 Lymph % (Auto) (13.4-35.0) % [place] % (Auto) (0.0-7.3) % Eos % (Auto) (0.0-4.3) % Baso % (Auto) (0.0-1.8) % Lymph # (Auto) (1.2-5.4) K/mm3 [place] # (Auto) (0.0-0.8) K/mm3 Eos # (Auto) (0.0-0.4) K/mm3 Baso # (Auto) (0.0-0.1) K/mm3 Seg Neutrophils % (40.0-70.0) % Seg Neutrophils # (1.8-7.7) K/mm3 PT (12.2-14.9) Sec. INR (0.87-1.13) APTT (24.2-36.6) Sec. Sodium 137 (137-145) mmol/L Potassium 4.4 (3.6-5.0) mmol/L Chloride 98.2 (98-107) mmol/L Carbon Dioxide 21 L (22-30) mmol/L Anion Gap 22 mmol/L BUN 26 H (9-20) mg/dL Creatinine 2.1 H (0.8-1.3) mg/dL Estimated GFR 37 ml/min BUN/Creatinine Ratio 12 % Glucose 237 H (75-100) mg/dL Lactic Acid (0.7-2.0) mmol/L Calcium 9.1 (8.4-10.2) mg/dL Total Bilirubin 0.60 (0.1-1.2) mg/dL Direct Bilirubin < 0.2 (0-0.2) mg/dL Indirect Bilirubin 0.4 mg/dL AST 10 (5-40) units/L ALT 7 (7-56) units/L Alkaline Phosphatase 140 H (35-129) units/L Ammonia 19.0 L (25-60) umol/L Total Creatine Kinase 38 L (55-170) units/L Troponin T 0.048 H (0.00-0.029) ng/mL Total Protein 7.0 (6.3-8.2) g/dL Albumin 3.2 L (3.9-5) g/dL Albumin/Globulin Ratio 0.8 % Triglycerides 87 (2-149) mg/dL Cholesterol 86 (50-199) mg/dL LDL Cholesterol Direct 43 L (50-130) mg/dL HDL Cholesterol 34 L (40-59) mg/dL Cholesterol/HDL Ratio 2.52 % - EKG Data -: EKG Interpreted by Me EKG shows normal: sinus rhythm Rate: normal Interpretation: no acute changes - Radiology Data Radiology results: report reviewed - Medical Decision Making Patient is 79 years old male with history of recent CVA right-sided weakness, hypertension, diabetes and COPD. Patient brought to the emergency room via EMS from home for evaluation of decreased responsiveness. Patient was found sleeping in his chair with decreased responsiveness per family report. EMS stated that when they arrived patient is in his chair but he is start answering questions. EMS stated that I gave patient Narcan and patient started becoming more awake however patient found to have a blood pressure of 86/45. Patient started on normal saline. Upon arrival to the ER patient is alert and answering questions appropriately. His blood pressure improved to 96/52. Patient stated that he took his water pill and his metoprolol. He stated that he checked his blood pressure before that and it was 88/46. Patient denied any headache. No new focal weakness, numbness or tingling sensation. Patient denied any chest pain or shortness of breath. Patient also denied any fever, chills, cough, abdominal pain, nausea or vomiting. EKG is unremarkable. Chest x-ray is negative for acute finding. CT brain showed no acute abnormalities. Labs reviewed and showed a white blood cells of 12.9. Creatinine is 2.5 patient baseline creatinine is 0.8 indicating acute renal failure most likely secondary to dehydration. Urine is still pending. Patient empirically treated with Levaquin 500 mg. I discussed the patient with Dr. Patel, he agreed to admit the patient to medical service for further management. Critical Care Time: Yes Critical care time in (mins) excluding proc time.: 30 Critical care attestation.: If time is entered above; I have spent that time in minutes in the direct care of this critically ill patient, excluding procedure time. ED Disposition Clinical Impression: Acute renal failure, Hypotension, Altered mental status, Elevated troponin Disposition: OP ADMIT IP TO THIS HOSP Is pt being admited?: Yes Condition: Stable
[2020-05-18 20:25] LABS: Basophils # (Auto) 0.1 K/mm3 (0.0-0.1); Basophils % (Auto) 0.7 % (0.0-1.8); Eosinophils # (Auto) 0.4 K/mm3 (0.0-0.4); Eosinophils % (Auto) 3.4 % (0.0-4.3); Hematocrit 33.7 % (35.5-45.6); Hemoglobin 11.1 gm/dl (11.8-15.2); Lymphocytes # (Auto) 1.6 K/mm3 (1.2-5.4); Lymphocytes % (Auto) 12.3 % (13.4-35.0); Mean Corpuscular HGB Conc 33 % (32-34); Mean Corpuscular Volume 93 fl (84-94); Monocytes # (Auto) 1.1 K/mm3 (0.0-0.8); Monocytes % (Auto) 8.3 % (0.0-7.3); Platelet Count 294 K/mm3 (140-440); Red Blood Count 3.61 M/mm3 (3.65-5.03); Red Cell Distribution Width 16.2 % (13.2-15.2)
[2020-05-18 20:36] LABS: INR 1.21 (0.87-1.13); Partial Thromboplastin Time 29.2 Sec. (24.2-36.6)
[2020-05-18 20:45] LABS: Alanine Aminotransferase 7 units/L (7-56); Albumin 3.2 g/dL (3.9-5); BUN/Creatinine Ratio 12; Blood Urea Nitrogen 26 mg/dL (9-20); Calcium 9.1 mg/dL (8.4-10.2); Hemolysis Index 7
[2020-05-18 20:49] LABS: Bilirubin,Direct < 0.2 mg/dL (0-0.2)
--- NOTE | 2020-05-18 20:56 | Cat Scan Report ---
NONENHANCED CT SCAN OF THE HEAD: INDICATION / CLINICAL INFORMATION: 79 years Male; Altered Mental Status. TECHNIQUE: Routine CT head without contrast. All CT scans at this location are performed using CT dos e reduction for ALARA by means of automated exposure control. COMPARISON: CT scan of the head from 05/09/2020 and MRI scan of the brain from 05/10/2020 FINDINGS: BRAIN / INTRACRANIAL CONTENTS: No acute hemorrhage, mass effect, midline shift, hydrocephalus, or acu te, large territorial infarct. Chronic ischemic changes in the left side of [place]. Periventricular low attenuation areas due to chronic small vessel disease. Moderate cortical involution the colon volume loss in the cerebellar hemispheres Small lacunae (chronic) seen in the left basal ganglia CRANIOCERVICAL JUNCTION: No significant abnormality. ORBITS: No significant abnormality of visualized orbits. SINUSES / MASTOIDS: No significant abnormality of the visualized paranasal sinuses or mastoid air conner ls. ADDITIONAL FINDINGS: None. IMPRESSION: No acute focal parenchymal lesion in the brain Signer Name: Armida Campoverde MD Signed: 05/18/2020 8:52 PM Workstation Name: [id number]
[2020-05-18 21:02] LABS: Chol/HDL Ratio 2.52 %; HDL Cholesterol 34 mg/dL (40-59); LDL Cholesterol,Direct 43 mg/dL (50-130)
--- NOTE | 2020-05-18 21:05 | XRay Report ---
CHEST 1 VIEW INDICATION / CLINICAL INFORMATION: Altered Mental Status. COMPARISON: CT chest 08/27/2018 FINDINGS: SUPPORT DEVICES: None. HEART / MEDIASTINUM: No significant abnormality. LUNGS / PLEURA: Chronic right hemidiaphragm elevation with associated right basilar atelectasis. Sign ificantly decreased right lung volume without focal abnormality. Left lung is clear without pleural o r parenchymal abnormality. No pneumothorax. ADDITIONAL FINDINGS: No significant additional findings. IMPRESSION: 1. No acute findings. Signer Name: Jagdeep Melendez MD Signed: 05/18/2020 9:01 PM Workstation Name: [id number]
[2020-05-18] MEDS ORDERED: ACETAMINOPHEN 325 MG TAB PO PRN ×2 (22:39)
[2020-05-18] MEDS ORDERED: ONDANSETRON 4 MG/2 ML INJ IV PRN (22:39)
[2020-05-18] MEDS ORDERED: MAGNESIUM HYDROXIDE (MOM) ORAL LIQD UDC PO PRN (22:39)
[2020-05-18] MEDS ORDERED: DEXTROSE 50% IN WATER (25GM) 50 ML SYRINGE IV PRN (22:39)
[2020-05-18 22:42] LABS: Bilirubin,Urine NEG (Negative); Blood,Urine NEG (Negative); Color,Urine Yellow (Yellow); Mucus,Urine FEW /HPF; Protein,Urine <15 mg/dL mg/dL (Negative); Urobilinogen,Urine < 2.0 mg/dL (<2.0)
[2020-05-18 22:44] LABS: Amphetamine Screen,Urine PRESUMPTIVE NEGATIVE; Benzodiazepines Screen,Urine PRESUMPTIVE NEGATIVE; Cannabinoid Screen,Urine PRESUMPTIVE NEGATIVE; Cocaine Screen,Urine PRESUMPTIVE NEGATIVE; Methadone Screen,Urine PRESUMPTIVE NEGATIVE; Opiate Screen,Urine PRESUMPTIVE NEGATIVE
[2020-05-18] MEDS ORDERED: SODIUM CHLORIDE 0.9% 1000 ML 1,000 ML IV SCH (22:45)
--- NOTE | 2020-05-18 22:52 | History and Physical Report ---
History of Present Illness Date of examination: 05/18/20 Date of admission: 05/18/2020 Chief complaint: Altered Mental Status History of present illness: 79-year-old -[place] male with known history of hypertension, diabetes mellitus, COPD and history of CVA with right-sided weakness brought into the emergency room today by EMS for decreased responsiveness. Patient was recently discharged from rehab following CVA hours at home on his chair where family reports that he became less responsive. Upon arrival of EMS blood pressure was said to be 86/45 mmHg. He was given some Narcan and also some IV fluid normal saline. Upon arrival in the emergency room. Patient has become more responsive with a blood pressure of 96/52. He was able to answer questions appropriately and he states that he took his diuretic in addition to his metoprolol earlier in the day. He denies any headache or dizziness, no chest pain no shortness of breath, no fever or chills, no nausea or vomiting and no diarrhea. Work-up in the emergency room today reveals an elevated white count of about 13, CT scan of the head was unremarkable, he also had a elevated BUN and creatinine. Elevated troponin. Patient started on IV fluid and is being evaluated for his altered mental status and hypotension. Past History Past Medical History: arthritis, COPD, diabetes, GERD, hypertension, hyperlipidemia, stroke Past Surgical History: No surgical history Social history: no significant social history Family history: no significant family history Medications and Allergies Allergies Allergy/AdvReac Type Severity Reaction Status Date / Time atenolol Allergy Anaphylaxis Verified 05/09/20 18:49 lisinopril Allergy Anaphylaxis Verified 05/09/20 18:49 Penicillins Allergy Hives Verified 05/09/20 18:49 Home Medications Medication Instructions Recorded Confirmed Last Taken Type Brimonidine/Timolol 0.2-0.5% 1 drop OU QHS 05/16/15 05/09/20 05/21/15 History Lasix TAB 20 mg PO DAILY 05/16/15 05/09/20 05/21/15 History Metoprolol 100 mg PO DAILY 05/16/15 05/09/20 05/21/15 History Albuterol Sulfate [Proair 90 mcg IH Q4HR PRN #2 [email or web address] 05/03/20 05/09/20 Unknown Rx Respiclick] AtorvaSTATin [Lipitor] 40 mg PO QHS 05/03/20 05/09/20 Unknown History Fosinopril Sodium 40 mg PO QDAY 05/03/20 05/09/20 Unknown History Albuterol Sulfate [Proair 90 mcg INHALATION PRN 05/09/20 05/09/20 Unknown History Respiclick] Plavix 75 mg PO DAILY 05/09/20 05/09/20 Unknown History Brimonidine/Timolol 0.2-0.5% 1 drops OU QHS bottle 05/12/20 Unknown Rx [Combigan 0.2-0.5%] Clopidogrel [Plavix] 75 mg PO DAILY tablet 05/12/20 Unknown Rx Famotidine [Pepcid] 20 mg PO BID tablet 05/12/20 Unknown Rx Finasteride [Proscar] 5 mg PO DAILY tablet 05/12/20 Unknown Rx Insulin NPH Hum/Reg Insulin Hm 15 unit SQ BID 30 Days #1 vial 05/12/20 Unknown Rx [Novolin 70-30 Flexpen] Sennosides/Docusate [Senokot S] 1 tab PO BID tablet 05/12/20 Unknown Rx Tamsulosin [Flomax] 0.4 mg PO QDAY capsule 05/12/20 Unknown Rx allopurinoL [Zyloprim] 300 mg PO QDAY tablet 05/12/20 Unknown Rx oxyCODONE /ACETAMINOPHEN [Percocet 1 tab PO Q6H PRN tablet 05/12/20 Unknown Rx 5/325 mg] Active Meds: Active Medications Acetaminophen (Tylenol) 650 mg PO Q4H PRN PRN Reason: Pain MILD(1-3)/Fever >100.5/COLÓN Acetaminophen (Tylenol) 650 mg PO Q6H PRN PRN Reason: Pain, Mild (1-3) Aspirin (Ecotrin) 325 mg PO QDAY ERICA Dextrose (D50w (25gm) Syringe) 50 ml IV Q30MIN PRN; Protocol PRN Reason: Hypoglycemia Dextrose (D50w (25gm) Syringe) 50 ml IV Q30MIN PRN; Protocol PRN Reason: Hypoglycemia Levofloxacin/Dextrose (Levaquin 500mg/100ml) 500 mg in 100 mls @ 100 mls/hr IV ONCE ONE; Protocol Stop: 05/18/20 22:49 Last Admin: 05/18/20 22:41 Dose: 100 mls/hr Documented by: Sodium Chloride (Nacl 0.9% 1000 Ml) 1,000 mls @ 100 mls/hr IV DIRECT ERICA Insulin Human Lispro (Humalog) 0 unit SUB-Q ACHS ERICA; Protocol Magnesium Hydroxide (Milk Of Magnesia) 30 ml PO Q4H PRN PRN Reason: Constipation Ondansetron HCl (Zofran) 4 mg IV Q8H PRN PRN Reason: Nausea And Vomiting Sodium Chloride (Sodium Chloride Flush Syringe 10 Ml) 10 ml IV BID ERICA Sodium Chloride (Sodium Chloride Flush Syringe 10 Ml) 10 ml IV PRN PRN PRN Reason: LINE FLUSH Sodium Chloride (Sodium Chloride Flush Syringe 10 Ml) 10 ml IV PRN PRN PRN Reason: LINE FLUSH Review of Systems Constitutional: no fever, no chills Ears, nose, mouth and throat: no nasal congestion, no sore throat Cardiovascular: no chest pain, no palpitations Respiratory: no cough, no shortness of breath Gastrointestinal: no abdominal pain, no nausea, no vomiting, no diarrhea Genitourinary Male: no dysuria, no hematuria, no flank pain Musculoskeletal: no neck pain, no low back pain Integumentary: no rash, no pruritis Neurological: confusion, no headaches Psychiatric: no anxiety, no depression Exam - Constitutional Vitals: Temp Pulse Resp BP Pulse Ox 98.1 F 81 10 L 115/62 76 L 05/18/20 19:53 05/18/20 22:30 05/18/20 22:30 05/18/20 22:30 05/18/20 22:30 General appearance: Present: no acute distress, well-nourished - EENT Eyes: Present: PERRL, EOM intact. Absent: scleral icterus ENT: hearing intact, clear oral mucosa, dentition normal - Neck Neck: Present: supple, normal ROM - Respiratory Respiratory effort: normal Respiratory: bilateral: CTA - Cardiovascular Rhythm: regular Heart Sounds: Present: S1 & S2. Absent: gallop, systolic murmur, diastolic murmur, rub - Extremities Extremities: no ischemia, pulses intact, pulses symmetrical, No edema, Full ROM Peripheral Pulses: within normal limits - Abdominal General gastrointestinal: Present: soft, non-tender, non-distended, normal bowel sounds. Absent: mass - Integumentary Integumentary: Present: clear, warm, dry, rash (Psoriatric rash on abdominal wall) - Musculoskeletal Musculoskeletal: right sided weakness (Right lower extremity.) - Psychiatric Psychiatric: appropriate mood/affect, intact judgment & insight, memory intact, cooperative - Neurologic Neurologic: CNII-XII intact, no focal deficits, moves all extremities HEART Score - HEART Score Troponin: Troponin T 0.048 ng/mL (0.00-0.029) H 05/18/20 20:01 Results - Labs CBC & Chem 7: 05/19/20 05:43 05/19/20 05:43 Labs: Abnormal lab results 05/18/20 05/18/20 05/18/20 Range/Units 20:01 20:01 20:01 WBC 12.9 H (4.5-11.0) K/mm3 RBC 3.61 L (3.65-5.03) M/mm3 Hgb 11.1 L (11.8-15.2) gm/dl Hct 33.7 L (35.5-45.6) % RDW 16.2 H (13.2-15.2) % Lymph % (Auto) 12.3 L (13.4-35.0) % [place] % (Auto) 8.3 H (0.0-7.3) % [place] # (Auto) 1.1 H (0.0-0.8) K/mm3 Seg Neutrophils % 75.3 H (40.0-70.0) % Seg Neutrophils # 9.7 H (1.8-7.7) K/mm3 PT 15.5 H (12.2-14.9) Sec. INR 1.21 H (0.87-1.13) Carbon Dioxide 21 L (22-30) mmol/L BUN 26 H (9-20) mg/dL Creatinine 2.1 H (0.8-1.3) mg/dL Glucose 237 H (75-100) mg/dL Alkaline Phosphatase 140 H (35-129) units/L Ammonia (25-60) umol/L Total Creatine Kinase 38 L (55-170) units/L Troponin T 0.048 H (0.00-0.029) ng/mL Albumin 3.2 L (3.9-5) g/dL LDL Cholesterol Direct 43 L (50-130) mg/dL HDL Cholesterol 34 L (40-59) mg/dL 05/18/20 Range/Units 20:01 WBC (4.5-11.0) K/mm3 RBC (3.65-5.03) M/mm3 Hgb (11.8-15.2) gm/dl Hct (35.5-45.6) % RDW (13.2-15.2) % Lymph % (Auto) (13.4-35.0) % [place] % (Auto) (0.0-7.3) % [place] # (Auto) (0.0-0.8) K/mm3 Seg Neutrophils % (40.0-70.0) % Seg Neutrophils # (1.8-7.7) K/mm3 PT (12.2-14.9) Sec. INR (0.87-1.13) Carbon Dioxide (22-30) mmol/L BUN (9-20) mg/dL Creatinine (0.8-1.3) mg/dL Glucose (75-100) mg/dL Alkaline Phosphatase (35-129) units/L Ammonia 19.0 L (25-60) umol/L Total Creatine Kinase (55-170) units/L Troponin T (0.00-0.029) ng/mL Albumin (3.9-5) g/dL LDL Cholesterol Direct (50-130) mg/dL HDL Cholesterol (40-59) mg/dL Assessment and Plan - Patient Problems (1) Altered mental status Current Visit: Yes Status: Acute Plan to address problem: Etiology is unclear. Possibly secondary to some low blood pressure. Patient is commenced on IV fluid and has become more alert and oriented. (2) Acute renal failure Current Visit: Yes Status: Acute Plan to address problem: We will continue IV fluid and monitor BUN and creatinine. (3) Hypotension Current Visit: Yes Status: Acute Plan to address problem: We will continue on IV fluid and monitor vital signs closely. We will reevaluate medications prior to discharge. (4) Elevated troponin Current Visit: Yes Status: Acute Plan to address problem: Probably secondary to renal insufficiency. Will monitor troponin levels.Will consult cardiology for evaluation. (5) DVT prophylaxis Current Visit: No Status: Acute Plan to address problem: Patient placed on subcutaneous heparin. (6) Full code status Current Visit: Yes Status: Acute
[2020-05-19 06:19] LABS: Basophils % (Auto) 0.4 % (0.0-1.8); Eosinophils # (Auto) 0.6 K/mm3 (0.0-0.4); Eosinophils % (Auto) 5.5 % (0.0-4.3); Hematocrit 33.2 % (35.5-45.6); Hemoglobin 11.1 gm/dl (11.8-15.2); Lymphocytes # (Auto) 1.5 K/mm3 (1.2-5.4); Lymphocytes % (Auto) 14.2 % (13.4-35.0); Mean Corpuscular HGB Conc 33 % (32-34); Mean Corpuscular Volume 93 fl (84-94); Monocytes % (Auto) 9.3 % (0.0-7.3); Platelet Count 282 K/mm3 (140-440); Red Blood Count 3.55 M/mm3 (3.65-5.03); Red Cell Distribution Width 16.3 % (13.2-15.2)
[2020-05-19 06:25] LABS: INR 1.17 (0.87-1.13)
[2020-05-19 06:29] LABS: Calcium 8.7 mg/dL (8.4-10.2)
[2020-05-19] MEDS ORDERED: INSULIN LISPRO 100 UNIT/ML VIAL 3 mL SUB-Q SCH (07:30)
--- NOTE | 2020-05-19 08:01 | Consultation ---
History of Present Illness Consult date: 05/19/20 Requesting physician: ROSI LEON Consult reason: elevated troponin History of present illness: 79-year-old -[place] male admitted with change in mental status. Noted to have borderline elevated troponin cardiology is being asked to evaluate the patient. Patient with known history of hypertension, diabetes mellitus, COPD and history of CVA with right-sided weakness brought to the hospital by family who noticed patient was lethargic.Patient was recently discharged from rehab following CVA. Patient was noted to be hypotensive and significantly dehydrated on arrival. Patient currently more alert. He denies any headache or dizziness, no chest pain no shortness of breath, no fever or chills, no nausea or vomiting and no diarrhea. Past History Past Medical History: arthritis, COPD, diabetes, GERD, hypertension, hyperlipidemia, stroke Past Surgical History: No surgical history Social history: no significant social history Family history: no significant family history Medications and Allergies Allergies Allergy/AdvReac Type Severity Reaction Status Date / Time atenolol Allergy Anaphylaxis Verified 05/09/20 18:49 lisinopril Allergy Anaphylaxis Verified 05/09/20 18:49 Penicillins Allergy Hives Verified 05/09/20 18:49 Home Medications Medication Instructions Recorded Confirmed Last Taken Type Brimonidine/Timolol 0.2-0.5% 1 drop OU QHS 05/16/15 05/09/20 05/21/15 History Lasix TAB 20 mg PO DAILY 05/16/15 05/09/20 05/21/15 History Metoprolol 100 mg PO DAILY 05/16/15 05/09/20 05/21/15 History Albuterol Sulfate [Proair 90 mcg IH Q4HR PRN #2 aer.[email or web address] 05/03/20 05/09/20 Unknown Rx Respiclick] AtorvaSTATin [Lipitor] 40 mg PO QHS 05/03/20 05/09/20 Unknown History Fosinopril Sodium 40 mg PO QDAY 05/03/20 05/09/20 Unknown History Albuterol Sulfate [Proair 90 mcg INHALATION PRN 05/09/20 05/09/20 Unknown History Respiclick] Plavix 75 mg PO DAILY 05/09/20 05/09/20 Unknown History Brimonidine/Timolol 0.2-0.5% 1 drops OU QHS bottle 05/12/20 Unknown Rx [Combigan 0.2-0.5%] Clopidogrel [Plavix] 75 mg PO DAILY tablet 05/12/20 Unknown Rx Famotidine [Pepcid] 20 mg PO BID tablet 05/12/20 Unknown Rx Finasteride [Proscar] 5 mg PO DAILY tablet 05/12/20 Unknown Rx Insulin NPH Hum/Reg Insulin Hm 15 unit SQ BID 30 Days #1 vial 05/12/20 Unknown Rx [Novolin 70-30 Flexpen] Sennosides/Docusate [Senokot S] 1 tab PO BID tablet 05/12/20 Unknown Rx Tamsulosin [Flomax] 0.4 mg PO QDAY capsule 05/12/20 Unknown Rx allopurinoL [Zyloprim] 300 mg PO QDAY tablet 05/12/20 Unknown Rx oxyCODONE /ACETAMINOPHEN [Percocet 1 tab PO Q6H PRN tablet 05/12/20 Unknown Rx 5/325 mg] Active Meds: Active Medications Acetaminophen (Tylenol) 650 mg PO Q4H PRN PRN Reason: Pain MILD(1-3)/Fever >100.5/COLÓN Last Admin: 05/19/20 01:49 Dose: 650 mg Documented by: Aspirin (Ecotrin) 325 mg PO QDAY ERICA Dextrose (D50w (25gm) Syringe) 50 ml IV Q30MIN PRN; Protocol PRN Reason: Hypoglycemia Heparin Sodium (Porcine) (Heparin) 5,000 unit SUB-Q Q8HR ERICA Sodium Chloride (Nacl 0.9% 1000 Ml) 1,000 mls @ 100 mls/hr IV DIRECT ERICA Last Admin: 05/19/20 01:22 Dose: 100 mls/hr Documented by: Insulin Human Lispro (Humalog) 0 unit SUB-Q ACHS ERICA; Protocol Magnesium Hydroxide (Milk Of Magnesia) 30 ml PO Q4H PRN PRN Reason: Constipation Ondansetron HCl (Zofran) 4 mg IV Q8H PRN PRN Reason: Nausea And Vomiting Last Admin: 05/19/20 01:49 Dose: 4 mg Documented by: Sodium Chloride (Sodium Chloride Flush Syringe 10 Ml) 10 ml IV BID ERICA Sodium Chloride (Sodium Chloride Flush Syringe 10 Ml) 10 ml IV PRN PRN PRN Reason: LINE FLUSH Review of Systems All systems: negative (As mentioned in the H&P) Physical Examination Vital Signs BP 86/46 05/18/20 19:17 General: No Apparent Distress, alert oriented moderately obese HEENT: NAD Neck: neck supple Cardiac: S1-S2 heard faint 2/6 systolic murmur Lungs: Normal basilar breath sounds heard Neuro: Grossly Intact Abdomen: Soft Extremities: No edema noted Results 05/19/20 05:43 05/19/20 05:43 Cardiac Enzymes 05/18/20 Range/Units 20:01 AST 10 (5-40) units/L Coagulation 05/18/20 05/19/20 Range/Units 20:01 05:43 PT 15.5 H 15.1 H (12.2-14.9) Sec. INR 1.21 H 1.17 H (0.87-1.13) APTT 29.2 (24.2-36.6) Sec. Lipids 05/18/20 Range/Units 20:01 Triglycerides 87 (2-149) mg/dL Cholesterol 86 (50-199) mg/dL HDL Cholesterol 34 L (40-59) mg/dL Cholesterol/HDL Ratio 2.52 % CBC 05/18/20 05/19/20 Range/Units 20:01 05:43 WBC 12.9 H 10.4 (4.5-11.0) K/mm3 RBC 3.61 L 3.55 L (3.65-5.03) M/mm3 Hgb 11.1 L 11.1 L (11.8-15.2) gm/dl Hct 33.7 L 33.2 L (35.5-45.6) % Plt Count 294 282 (140-440) K/mm3 Lymph # (Auto) 1.6 1.5 (1.2-5.4) K/mm3 [place] # (Auto) 1.1 H 1.0 H (0.0-0.8) K/mm3 Eos # (Auto) 0.4 0.6 H (0.0-0.4) K/mm3 Baso # (Auto) 0.1 0.0 (0.0-0.1) K/mm3 Comprehensive Metabolic Panel 05/18/20 05/19/20 Range/Units 20:01 05:43 Sodium 137 140 (137-145) mmol/L Potassium 4.4 4.1 (3.6-5.0) mmol/L Chloride 98.2 101.4 (98-107) mmol/L Carbon Dioxide 21 L 23 (22-30) mmol/L BUN 26 H 24 H (9-20) mg/dL Creatinine 2.1 H 1.6 H (0.8-1.3) mg/dL Glucose 237 H 158 H (75-100) mg/dL Calcium 9.1 8.7 (8.4-10.2) mg/dL Direct Bilirubin < 0.2 (0-0.2) mg/dL Indirect Bilirubin 0.4 mg/dL AST 10 (5-40) units/L ALT 7 (7-56) units/L Alkaline Phosphatase 140 H (35-129) units/L Total Protein 7.0 (6.3-8.2) g/dL Albumin 3.2 L (3.9-5) g/dL EKG interpretations - Telemetry EKG Rhythm: Sinus Rhythm (No acute ST-T wave changes noted) Assessment and Plan Recent cardiac work-up 05/14 2D echo with normal LV systolic function mild to moderate LVH, patent PFO, moderate pulmonary hypertension Assessment and plan Change in mental status Likely secondary to dehydration Patient more alert today. Borderline elevated troponin In the setting of dehydration no evidence of acute PR. Likely non-PR troponin in the absence of symptoms no further work-up is recommended Recent echocardiogram showed normal LV systolic function History of PFO by recent echo Aspirin for now If patient has 1 more CVA will be recommended for percutaneous PFO closure Acute renal failure Secondary to dehydration improving. Hypotension Improving
--- NOTE | 2020-05-19 08:41 | Progress Note ---
Assessment and Plan - Patient Problems (1) Acute renal failure Current Visit: Yes Status: Acute Plan to address problem: Patient acute renal failure. Will decrease JUSTICE inhibitor and have. Patient altered mental status multifactorial secondary to dehydration and hypotension. No UTI. Talk to daughter was told she had a UTI patient did not have evidence of UTI. (2) Full code status Current Visit: Yes Status: Acute (3) Hypotension Current Visit: Yes Status: Acute Plan to address problem: Now back to normal. We will continue to hold antihypertensives and will restart patient on only 50 mg of metoprolol and 20 mg lisinopril tomorrow. Will further titrate up with Dr. Rowell which is her primary care physician. (4) History of CVA with residual deficit Current Visit: No Status: Acute Plan to address problem: This is the same thing history of CVA with residual differential deficit. This time secondary to hypotension. Subjective Date of service: 05/19/20 Principal diagnosis: Altered mental status Interval history: 79-year-old male with a history of hypertension diabetes COPD CVA with right hemiparesis presents with altered mental status. Upon ED was found to be hypotensive. Patient regained responsiveness after short trial of rehydration. CT abdomen in the ED found to be unremarkable. Altered mental status appears to have resolved at this time. Patient did have acute kidney injury which seems to be responding to volume replacement. Objective - Constitutional Vitals: Vital Signs - 12hr 05/18/20 05/18/20 05/18/20 20:45 21:00 21:15 Temperature Pulse Rate 77 76 79 Respiratory 14 13 12 Rate Blood Pressure 106/51 109/58 106/50 O2 Sat by Pulse 96 95 93 Oximetry 05/18/20 05/18/20 05/18/20 21:30 21:45 22:00 Temperature Pulse Rate 76 79 84 Respiratory 14 15 16 Rate Blood Pressure 102/48 103/51 112/51 O2 Sat by Pulse 94 93 78 L Oximetry 05/18/20 05/18/20 05/18/20 22:15 22:30 22:46 Temperature Pulse Rate 82 81 81 Respiratory 15 10 L 13 Rate Blood Pressure 117/58 115/62 100/67 O2 Sat by Pulse 74 L 76 L Oximetry 05/18/20 05/18/20 05/18/20 23:00 23:15 23:30 Temperature Pulse Rate 82 89 81 Respiratory 10 L 12 14 Rate Blood Pressure 119/65 109/53 116/62 O2 Sat by Pulse 96 96 97 Oximetry 05/18/20 05/18/20 05/18/20 23:36 23:45 23:52 Temperature Pulse Rate 84 82 85 Respiratory 15 21 14 Rate Blood Pressure 109/53 110/67 110/67 O2 Sat by Pulse 95 97 96 Oximetry 05/19/20 05/19/20 05/19/20 00:00 00:10 00:20 Temperature Pulse Rate 85 84 88 Respiratory 16 15 12 Rate Blood Pressure 98/51 98/51 104/48 O2 Sat by Pulse 83 L 95 Oximetry 05/19/20 05/19/20 05/19/20 00:30 00:40 00:59 Temperature 97.9 F Pulse Rate 82 81 83 Respiratory 15 14 18 Rate Blood Pressure 104/48 104/48 128/72 O2 Sat by Pulse 92 Oximetry 05/19/20 05/19/20 05/19/20 01:49 03:32 04:03 Temperature 97.9 F Pulse Rate 85 84 Respiratory 20 16 Rate Blood Pressure 133/59 O2 Sat by Pulse 91 Oximetry General appearance: Present: no acute distress, well-nourished - EENT Eyes: PERRL, EOM intact ENT: hearing intact, clear oral mucosa Ears: bilateral: normal - Neck Neck: supple, normal ROM - Respiratory Respiratory effort: normal Respiratory: bilateral: CTA - Breasts Breasts: normal - Cardiovascular Rhythm: regular Heart Sounds: Present: S1 & S2. Absent: gallop, rub Extremities: pulses intact, No edema, normal color, Full ROM - Gastrointestinal General gastrointestinal: Present: soft, non-tender, non-distended, normal bowel sounds - Genitourinary Male genitourinary: normal - Integumentary Integumentary: clear, warm, dry - Musculoskeletal Musculoskeletal: 1, strength equal bilaterally - Neurologic Neurologic: moves all extremities - Psychiatric Psychiatric: memory intact, appropriate mood/affect, intact judgment & insight - Labs CBC & Chem 7: 05/19/20 05:43 05/19/20 05:43 Labs: Abnormal lab results 05/18/20 05/18/20 05/18/20 Range/Units 20:01 20:01 20:01 WBC 12.9 H (4.5-11.0) K/mm3 RBC 3.61 L (3.65-5.03) M/mm3 Hgb 11.1 L (11.8-15.2) gm/dl Hct 33.7 L (35.5-45.6) % RDW 16.2 H (13.2-15.2) % Lymph % (Auto) 12.3 L (13.4-35.0) % [place] % (Auto) 8.3 H (0.0-7.3) % Eos % (Auto) (0.0-4.3) % [place] # (Auto) 1.1 H (0.0-0.8) K/mm3 Eos # (Auto) (0.0-0.4) K/mm3 Seg Neutrophils % 75.3 H (40.0-70.0) % Seg Neutrophils # 9.7 H (1.8-7.7) K/mm3 PT 15.5 H (12.2-14.9) Sec. INR 1.21 H (0.87-1.13) Carbon Dioxide 21 L (22-30) mmol/L BUN 26 H (9-20) mg/dL Creatinine 2.1 H (0.8-1.3) mg/dL Glucose 237 H (75-100) mg/dL Alkaline Phosphatase 140 H (35-129) units/L Ammonia (25-60) umol/L Total Creatine Kinase 38 L (55-170) units/L Troponin T 0.048 H (0.00-0.029) ng/mL Albumin 3.2 L (3.9-5) g/dL LDL Cholesterol Direct 43 L (50-130) mg/dL HDL Cholesterol 34 L (40-59) mg/dL 05/18/20 05/18/20 05/19/20 Range/Units 20:01 22:45 05:43 WBC (4.5-11.0) K/mm3 RBC 3.55 L (3.65-5.03) M/mm3 Hgb 11.1 L (11.8-15.2) gm/dl Hct 33.2 L (35.5-45.6) % RDW 16.3 H (13.2-15.2) % Lymph % (Auto) (13.4-35.0) % [place] % (Auto) 9.3 H (0.0-7.3) % Eos % (Auto) 5.5 H (0.0-4.3) % [place] # (Auto) 1.0 H (0.0-0.8) K/mm3 Eos # (Auto) 0.6 H (0.0-0.4) K/mm3 Seg Neutrophils % 70.6 H (40.0-70.0) % Seg Neutrophils # (1.8-7.7) K/mm3 PT (12.2-14.9) Sec. INR (0.87-1.13) Carbon Dioxide (22-30) mmol/L BUN (9-20) mg/dL Creatinine (0.8-1.3) mg/dL Glucose (75-100) mg/dL Alkaline Phosphatase (35-129) units/L Ammonia 19.0 L (25-60) umol/L Total Creatine Kinase (55-170) units/L Troponin T 0.041 H (0.00-0.029) ng/mL Albumin (3.9-5) g/dL LDL Cholesterol Direct (50-130) mg/dL HDL Cholesterol (40-59) mg/dL 05/19/20 05/19/20 Range/Units 05:43 05:43 WBC (4.5-11.0) K/mm3 RBC (3.65-5.03) M/mm3 Hgb (11.8-15.2) gm/dl Hct (35.5-45.6) % RDW (13.2-15.2) % Lymph % (Auto) (13.4-35.0) % [place] % (Auto) (0.0-7.3) % Eos % (Auto) (0.0-4.3) % [place] # (Auto) (0.0-0.8) K/mm3 Eos # (Auto) (0.0-0.4) K/mm3 Seg Neutrophils % (40.0-70.0) % Seg Neutrophils # (1.8-7.7) K/mm3 PT 15.1 H (12.2-14.9) Sec. INR 1.17 H (0.87-1.13) Carbon Dioxide (22-30) mmol/L BUN 24 H (9-20) mg/dL Creatinine 1.6 H (0.8-1.3) mg/dL Glucose 158 H (75-100) mg/dL Alkaline Phosphatase (35-129) units/L Ammonia (25-60) umol/L Total Creatine Kinase (55-170) units/L Troponin T (0.00-0.029) ng/mL Albumin (3.9-5) g/dL LDL Cholesterol Direct (50-130) mg/dL HDL Cholesterol (40-59) mg/dL HEART Score - HEART Score Troponin: Troponin T 0.029 ng/mL (0.00-0.029) 05/19/20 05:43
[2020-05-19 09:11] VITALS: BP 111/51
[2020-05-19] MEDS ORDERED: ASPIRIN EC 325 MG TAB PO SCH (10:00)
[2020-05-19] MEDS ORDERED: HEPARIN 5,000 UNIT/1 ML VIAL SUB-Q SCH (14:00)
--- NOTE | 2020-05-19 16:06 | Discharge Summary ---
Providers - Providers Date of Admission: 05/18/20 22:46 Date of discharge: 05/19/20 Attending physician: GIANA DUPONT 05/18/20 22:39 Consult to Cardiology [CONS] Routine Consulting Provider: SHANNON WINSLOW Reason For Exam: ELEVATED TROPONIN 05/18/20 22:41 Consult to Dietitian/Nutrition [CONS] Routine Physician Instructions: Reason For Exam: Reason for Consult: Diet education [facility] Condition: Good Pertinent studies: CT scan head unremarkable no strokes no lesions. Hospital course: 79-year-old male presents with a history of hypertension diabetes COPD CVA with residual right-sided defect present with altered mental status. Patient was f ound to be hypotensive 79/42 upon admission. Patient received IV fluids blood pressure came back to normal and patient was much more responsive at baseline. Patient able to talk to me tell me we was stat some minimal cognitive issues but very appropriate. Work-up with CT scan head unremarkable. Times have resolved. Disposition: DC- TO HOME OR SELFCARE - Discharge Diagnoses (1) Acute renal failure Status: Acute Comment: Secondary to dehydration. Hypotension. Resolving with IV fluids. 1 day creatinine is gone from 2.1-1.5. Will follow with Dr. Rowell as outpatient will decrease lisinopril to 20. (2) Full code status Status: Acute (3) Hypotension Status: Acute Comment: Decrease metoprolol to 50 mg and decrease lisinopril to 20 mg to be started tomorrow. Patient's hypotension has caused residual effect of previous CVA. This is been explained to daughter in detail. (4) History of CVA with residual deficit Status: Acute Comment: Avoid hypotension avoid dehydration. Encourage p.o. fluids. (5) Diabetes Status: Acute Comment: Diabetes fairly well controlled. Continue present medical management. Oral hypoglycemics. Core Measure Documentation - Palliative Care Palliative Care/ Comfort Measures: Not Applicable - Core Measures Any of the following diagnoses?: none Exam - Constitutional Vitals: Temp Pulse Resp BP Pulse Ox 97.9 F 81 16 111/51 90 05/19/20 03:32 05/19/20 09:00 05/19/20 03:32 05/19/20 08:08 05/19/20 08:08 General appearance: Present: no acute distress, well-nourished - EENT Eyes: Present: PERRL ENT: hearing intact, clear oral mucosa - Neck Neck: Present: supple, normal ROM - Respiratory Respiratory effort: normal Respiratory: bilateral: CTA - Cardiovascular Heart Sounds: Present: S1 & S2. Absent: rub, click - Extremities Extremities: pulses symmetrical, No edema Peripheral Pulses: within normal limits - Abdominal General gastrointestinal: Present: soft, non-tender, non-distended, normal bowel sounds Male genitourinary: Present: normal - Integumentary Integumentary: Present: clear, warm, dry - Musculoskeletal Musculoskeletal: strength equal bilaterally, other (Right-sided hemiparesis) - Psychiatric Psychiatric: appropriate mood/affect, intact judgment & insight - Neurologic Neurologic: CNII-XII intact, focal deficits, other (Right side hemiparesis.) Plan Activity: up only with assistance Weight Bearing Status: Partial Weight Bearing Diet: low salt, diabetic Special Instructions: home health RN Follow up with: IRIS IRWIN MD [Primary Care Provider] - 3-5 Days Prescriptions: Fosinopril Sodium 20 mg PO QDAY #30 Metoprolol 50 mg PO DAILY #30
== END 2020-05-19 18:48 | disposition home or self-care (01) ==
LOC: ED 19:17 → 4A 22:46
PROVIDERS: ADMIT Internal Medicine Geriatric Medicine; ATTEND Internal Medicine
DX: N17.9 Acute kidney failure, unspecified (principal); R41.82 Altered mental status, unspecified; I95.9 Hypotension, unspecified; R79.89 Other specified abnormal findings of blood chemistry; M19.90 Unspecified osteoarthritis, unspecified site; J44.9 Chronic obstructive pulmonary disease, unspecified; E11.9 Type 2 diabetes mellitus without complications; K21.9 Gastro-esophageal reflux disease without esophagitis; I10 Essential (primary) hypertension; E78.5 Hyperlipidemia, unspecified; Z86.73 Personal history of transient ischemic attack (TIA), and cerebral infarction without residual deficits; Z79.4 Long term (current) use of insulin; Z79.02 Long term (current) use of antithrombotics/antiplatelets
CPT/HCPCS: 36415; 70450; 71045; 80048; 80061; 80076; 80307; 81001; 82140; 82550; 82962; 84484; 85025; 85610; 85730; 87040; 93005; 96361; 96365; 96375; 99291; G0378; J1956; J2405; J7030

== ENCOUNTER 2020-11-20 06:23 | Day surgery (SDC) | payer MEDICARE, OTHER ==
[2020-11-16 13:06] LABS: Basophils % (Auto) 0.5 % (0.0-1.8); Eosinophils # (Auto) 0.5 K/mm3 (0.0-0.4); Eosinophils % (Auto) 6.4 % (0.0-4.3); Hematocrit 30.3 % (35.5-45.6); Hemoglobin 10.3 gm/dl (11.8-15.2); Lymphocytes # (Auto) 1.9 K/mm3 (1.2-5.4); Lymphocytes % (Auto) 25.2 % (13.4-35.0); Mean Corpuscular HGB Conc 34 % (32-34); Mean Corpuscular Volume 89 fl (84-94); Monocytes # (Auto) 0.4 K/mm3 (0.0-0.8); Monocytes % (Auto) 5.7 % (0.0-7.3); Platelet Count 246 K/mm3 (140-440); Red Cell Distribution Width 18.5 % (13.2-15.2)
[2020-11-16 13:21] LABS: Alanine Aminotransferase 11 units/L (7-56); Albumin 3.6 g/dL (3.9-5); BUN/Creatinine Ratio 26; Blood Urea Nitrogen 21 mg/dL (9-20); Calcium 8.7 mg/dL (8.4-10.2); Hemolysis Index 9
--- NOTE | 2020-11-16 17:20 | Anesthesia Consultation ---
Anesthesia Consult and Med Hx Date of service: 11/20/20 - Airway Anesthetic Teeth Evaluation: Dentures ROM Head & Neck: Inadequate (restricted extension) Mental/Hyoid Distance: Adequate (no thyroid enlargement or tracheal deviation noted on exam) Mallampati Class: Class III Intubation Access Assessment: Possibly Difficult - Pulmonary Exam CTA: Yes - Cardiac Exam Cardiac Exam: RRR - Pre-Operative Health Status ASA Pre-Surgery Classification: ASA4 Proposed Anesthetic Plan: General, MAC - Pre-Anesthesia Comment Pre-Anesthesia Comments: MAC vs GA pending discussion with surgeon regarding extent of intended procedure. - Pulmonary Hx Smoking: Yes (former smoker quit >30yrs ago) COPD: Yes Home Oxygen Therapy: Yes (2L NC prn) Hx Sleep Apnea: Yes (compliant with CPAP) - Cardiovascular System Hx Hypertension: Yes Hx Coronary Artery Disease: Yes (TTE 04/2020: normal EF, RVSP 57) Hx Heart Attack/AMI: No Hx Percutaneous Transluminal Coronary Angioplasty (PTCA): No Hx Cardia Arrhythmia: No Hx Pacemaker: No Hx Internal Defibrillator: No Hx Peripheral Vascular Disease: Yes (venous insufficiency) - Central Nervous System Hx Seizures: No CVA: Yes (2019 w/ residual right sided weakness; last dose plavix 11/13/20) Hx Back Pain: Yes - Gastrointestinal Hx Gastroesophageal Reflux Disease: Yes - Endocrine Hx Renal Disease: No Hx Liver Disease: No Hx Insulin Dependent Diabetes: Yes Hx Thyroid Disease: Yes (hx goiter; normal thyroid function) - Additional Comments Anesthesia Medical History Comments: Reports "difficulty waking up" after endoscopy procedure in 2005. Discussed with patient MAC vs GA.
[~2020-11-20 06:23] MED LIST: BACTERIOSTATIC SODIUM CHLORIDE 0.9% 30 ML VIAL INFILTRATI ONE; LACTATED RINGERS 1,000 ML IV SCH
[2020-11-20] MEDS ORDERED: ONDANSETRON 4 MG/2 ML INJ ONE (06:57)
[2020-11-20] MEDS ORDERED: LIDOCAINE MPF (2%) 20 MG/1 ML VIAL 5 ML ONE (06:57)
[2020-11-20] MEDS ORDERED: propofoL 200 MG/20 ML VIAL IV ONE ×4 (06:57→08:02)
[2020-11-20] MEDS ORDERED: fentaNYL 100 MCG/2 ML INJ ONE (06:57)
[2020-11-20] MEDS ORDERED: ePHEDrine SULFATE 50 MG/1 ML INJ ONE (06:58)
--- NOTE | 2020-11-20 07:12 | Anesthesia Day of Surgery ---
Anesthesia Day of Surgery - Day of Surgery Patient Examined: Yes Patient H&P Reviewed: Yes Patient is NPO: Yes
[2020-11-20] MEDS ORDERED: HYDROmorphone 1 MG/1 ML INJ IV PRN ×2 (07:30)
[2020-11-20] MEDS ORDERED: GENTAMICIN/NS 80 MG/100 ML 100 ML IV SCH (07:30)
[2020-11-20] MEDS ORDERED: ONDANSETRON 4 MG/2 ML INJ IV PRN (07:30)
[2020-11-20] MEDS ORDERED: ETOMIDATE 20 MG/10 ML INJ IV ONE (07:32)
[2020-11-20] MEDS ORDERED: dexAMETHasone 20 MG/5 ML VIAL ONE (08:00)
[2020-11-20] MEDS ORDERED: PHENYLEPHRINE/NS 1,000 MCG/10 ML SYRINGE (OR USE) IV ONE (08:00)
[2020-11-20] MEDS ORDERED: WATER FOR IRRIG STERILE 2000 ML IR ONE (08:15)
--- NOTE | 2020-11-20 08:40 | Short Stay Summary ---
Short Stay Documentation Date of service: 11/20/20 - History H&P: obtained from office - Allergies and Medications Current Medications: Allergies atenolol Allergy (Verified 05/09/20 18:49) Anaphylaxis lisinopril Allergy (Verified 05/09/20 18:49) Anaphylaxis Penicillins Allergy (Verified 05/09/20 18:49) Hives iodine Adverse Reaction (Verified 11/15/20 15:28) Unknown sodium iodide Adverse Reaction (Verified 11/15/20 15:28) Unknown Home Medications Medication Instructions Recorded Confirmed Last Taken Type Lasix TAB 20 mg PO DAILY 05/16/15 11/20/20 11/19/20 History AtorvaSTATin [Lipitor] 40 mg PO QHS 05/03/20 11/20/20 11/19/20 History Albuterol Sulfate [Proair 90 mcg INHALATION PRN 05/09/20 11/20/20 11/19/20 History Respiclick] Clopidogrel [Plavix] 75 mg PO DAILY tablet 05/12/20 11/20/20 11/13/20 Rx Famotidine [Pepcid] 20 mg PO BID tablet 05/12/20 11/20/20 11/19/20 Rx Finasteride [Proscar] 5 mg PO DAILY tablet 05/12/20 11/20/20 11/19/20 Rx Sennosides/Docusate [Senokot S] 1 tab PO BID tablet 05/12/20 11/20/20 11/19/20 Rx Tamsulosin [Flomax] 0.4 mg PO QDAY capsule 05/12/20 11/20/20 11/19/20 Rx allopurinoL [Zyloprim] 300 mg PO QDAY tablet 05/12/20 11/20/20 11/19/20 Rx oxyCODONE /ACETAMINOPHEN [Percocet 1 tab PO Q6H PRN tablet 05/12/20 11/20/20 11/19/20 Rx 5/325 mg] Metoprolol 50 mg PO DAILY #30 05/19/20 11/20/20 11/19/20 Rx Brimonidine Tartrate 0.2% 1 drop OU HS 11/15/20 11/15/20 11/19/20 History Dorzolamide 2% Eye Drop 1 drop OU HS 11/15/20 11/15/20 11/19/20 History Insulin NPH Hum/Reg Insulin Hm 22 unit SQ BID 11/15/20 11/20/20 11/19/20 History [Novolin 70-30 Flexpen] Latanoprost 0.005% 1 drop OU HS 11/15/20 11/15/20 11/19/20 History Active Medications Hydromorphone HCl (Hydromorphone 1 Mg/1 Ml Inj) 0.25 mg IV Q10MIN PRN PRN Reason: Pain, Moderate (4-6) Stop: 11/20/20 18:00 Hydromorphone HCl (Hydromorphone 1 Mg/1 Ml Inj) 0.5 mg IV Q10MIN PRN PRN Reason: Pain , Severe (7-10) Stop: 11/20/20 18:00 Lactated Ringer's (Lactated Ringers) 1,000 mls @ 42 mls/hr IV DIRECT ERICA Stop: 11/20/20 23:59 Last Admin: 11/20/20 06:50 Dose: 42 mls/hr Documented by: Gentamicin Sulfate/Sodium Chloride (Gentamicin/Ns 80 Mg/100 Ml) 100 mls @ 200 mls/hr IV PREOP ERICA Stop: 11/20/20 21:00 Ondansetron HCl (Ondansetron 4 Mg/2 Ml Inj) 4 mg IV ONCE PRN PRN Reason: Nausea And Vomiting Stop: 11/20/20 16:00 - Brief post op/procedure progress note Date of procedure: 11/20/20 Pre-op diagnosis: elevated psa, BPH Post-op diagnosis: other (urethral stricture) Procedure: urethral dilation, cysto, left rpg, pus 40cc, 12 prostate bx Anesthesia: GETA Surgeon: ETIENNE COX Estimated blood loss: minimal Specimen disposition: to lab (12 core prostate bx) Condition: stable - Hospital course Hospital course: cipro,ultram, post op info on chart - Disposition Condition at discharge: Stable Disposition: DC-01 TO HOME OR SELFCARE Short Stay Discharge Plan Follow up with: IRIS IRWIN MD [Primary Care Provider] - 7 Days
--- NOTE | 2020-11-20 08:53 | Ultrasound Report ---
ULTRASOUND TRANSRECTAL HISTORY: Elevated PSA, guidance for prostate biopsy FINDINGS: Transrectal ultrasound guidance was provided during prostate biopsy by urology. Prostate volume measu res 34.1 cc. Please correlate with the procedural report as needed. Signer Name: William Freeman Jr, MD Signed: 11/20/2020 8:49 AM Workstation Name: [id number]
--- NOTE | 2020-11-20 09:13 | Operative Report ---
PREOPERATIVE DIAGNOSES: 1. Elevated PSA of 10. 2. Benign prostatic hypertrophy. POSTOPERATIVE DIAGNOSES: 1. Elevated PSA of 10. 2. Benign prostatic hypertrophy. 3. Urethral stricture. PROCEDURES: Urethral dilatation, cystoscopy, left retrograde pyelogram, prostate ultrasound (40 grams), 12-core transrectal prostate biopsy. SURGEON: Tucker Mata MD ANESTHESIA: General. ESTIMATED BLOOD LOSS: Minimal. FLUIDS: Crystalloid. COMPLICATIONS: No complications. INDICATIONS: This patient is an 80-year-old gentleman seen in the office for BPH and elevated PSA. His PSA is now 10. We discussed options with the patient and his family, they agreed to proceed with surgical intervention. No family history of prostate cancer. Clearance from his neurologist (Dr. Khanh Christianson). He also received clearance from his sanitary aide, Dr. Raymond Gallardo, was able to stop his blood thinner. DESCRIPTION OF PROCEDURE: The patient was taken to the operative suite, placed in a supine position. After adequate IV sedation, he was placed in a dorsal lithotomy position, prepped and draped in a sterile fashion. Ureteroscopy was performed. Obvious bulbar stricture could be appreciated, it was not able to advance my scope. I then placed an 0.035 Glidewire under fluoroscopic guidance. Urethral dilatation starting with Schultz sounds starting at 18-Micronesian and going up to 24-Micronesian. I was unable to do a cystoscopy. The patient did have some trilobar obstruction with diffuse trabeculation in the bladder, no tumors or stones. Left retrograde pyelogram was obtained with an 8-Micronesian [place] catheter and 8 mL of contrast. No filling defects or obstruction. Right side, there was some extravasation due to angulation of the ureter. Calcification was lateral to what appeared to be the ureter suggesting vascular in nature. Next, a transrectal ultrasound was obtained. No lesions could be appreciated, 40 grams. A 12-core biopsy was obtained without difficulty. An 18-Micronesian [place] tip catheter was advanced over the wire. Rectal exam was benign. He was extubated and taken to recovery room. He will go home on Cipro and Ultram and follow up in the office. JOB# [id number] DKC/NTS
--- NOTE | 2020-11-20 11:09 | Fluoroscopy Report ---
LEFT RETROGRADE PYELOGRAM INDICATION / CLINICAL INFORMATION: ELEVATED PSA/URETHRAL STIRCTURE. TECHNIQUE: Intraoperative spot images were obtained during the procedure. FINDINGS: The left ureter was cannulated and injected. No filling defects are observed. There is no hydronephro sis. Fluoroscopy Time: 12 seconds. Fluoroscopy Images: 6. Signer Name: Ori Guajardo MD Signed: 11/20/2020 11:05 AM Workstation Name: [id number]
[2020-11-20 11:12] VITALS: BP 113/75
--- NOTE | 2020-11-20 11:52 | Post Anesthesia Evaluation ---
- Post Anesthesia Evaluation Patient Participated: Yes Airway Patent: Yes Stable Respiratory Function: Yes Nausea/Vomiting: No Temp > 96.8F: Yes Pain Manageable: Yes Adequeate Hydration: Yes Anesthesia Complications: No Block Receding Appropriately: Not Applicable Patient on Ventilator: No
== END 2020-11-20 11:25 | disposition home or self-care (01) ==
LOC: OR 06:23
PROVIDERS: ATTEND Urology
DX: R97.20 Elevated prostate specific antigen [PSA] (principal); N40.0 Benign prostatic hyperplasia without lower urinary tract symptoms; N35.812 Other bulbous urethral stricture, male; Z20.822 Contact with and (suspected) exposure to COVID-19; I10 Essential (primary) hypertension; E78.5 Hyperlipidemia, unspecified; E11.9 Type 2 diabetes mellitus without complications; I25.10 Atherosclerotic heart disease of native coronary artery without angina pectoris; J44.9 Chronic obstructive pulmonary disease, unspecified; G47.30 Sleep apnea, unspecified; M19.90 Unspecified osteoarthritis, unspecified site; Z91.81 History of falling; Z87.440 Personal history of urinary (tract) infections; Z98.890 Other specified postprocedural states; Z88.0 Allergy status to penicillin; Z91.041 Radiographic dye allergy status; Z88.8 Allergy status to other drugs, medicaments and biological substances; Z79.899 Other long term (current) drug therapy; Z87.891 Personal history of nicotine dependence; Z86.73 Personal history of transient ischemic attack (TIA), and cerebral infarction without residual deficits
CPT/HCPCS: 36415; 52281; 55700; 74420; 76872; 80053; 82962; 85025; 88305; A4217; C1758; C1769; J1100; J1580; J2370; J2405; J2704; J3010; J7120; Q9967; U0003; 88341; 88342

== ENCOUNTER 2020-12-25 09:46 | Outpatient (CLI) | payer MEDICARE, OTHER ==
--- NOTE | 2020-12-25 13:23 | Cat Scan Report ---
CT abdomen pelvis wo con INDICATION / CLINICAL INFORMATION: Prostate cancer restaging. Abdominal pain TECHNIQUE: Routine CT abdomen pelvis without IV contrast All CT scans at this location are performed using CT do se reduction for ALARA by means of automated exposure control. COMPARISON: 05/03/2020 FINDINGS: Abdomen and pelvis: There is more masslike consolidation partially visualized, multilobular within the medial aspect of t he left lower lobe now measuring 4 cm in diameter. Previously a more consolidative process was identi fied in this region. There are multiple small nodular densities scattered throughout both lower lungs , a new finding. The gallbladder contains multiple gallstones. The liver is grossly unchanged in appearance within the limits of the noncontrast technique. The spleen, pancreas and adrenal glands are thickened. Both kidneys are slightly atrophic. The previously identified retrocrural adenopathy has significantl y worsened in the interim one of the largest nodes measures 3.1 cm in diameter previously measuring a bout 1.6 cm in diameter. Significant progression of retroperitoneal adenopathy along the periaortic region. There is also wors ening adenopathy along the right external iliac sushma chain. The prostate is enlarged. The urinary bladder wall is thickened. Review of bone windows demonstrates severe sclerotic abnormalities throughout the thoracolumbar spine as well as the pelvis consistent with osseous metastatic disease. The overall appearance is worse fr om the prior exam. Several ill-defined sclerotic lesions are present within the lower ribs also suspi cious for metastatic disease IMPRESSION: Severe progression of metastatic disease within the chest abdomen and pelvis and multiple osseous str uctures when compared to 05/03/2020. Signer Name: Efraín Isabel MD Signed: 12/25/2020 1:18 PM Workstation Name: [id number]
--- NOTE | 2020-12-25 14:32 | Nuclear Medicine Report ---
NM bone scan whole body INDICATION / CLINICAL INFORMATION: C61. TECHNIQUE: Dose / Agent / Route: 26 mCi technetium MDP, IV. COMPARISON: No relevant prior imaging study available. FINDINGS: A large area of abnormal uptake is demonstrated in the right humeral head. Smaller foci of abnormal u ptake are demonstrated in the right proximal clavicle, L2, L5, T6, T8, bilateral sacrum, bilateral pe lvis and both proximal femurs. Appearance is consistent with metastatic disease. IMPRESSION: 1. Multiple skeletal metastases, as described. 2. Uptake in the right proximal humerus is especially prominent; especially with the given history of pain, further evaluation is suggested to exclude pathologic fracture. Signer Name: Larry Hendrix MD Signed: 12/25/2020 2:28 PM Workstation Name: [id number]
== END 2020-12-25 09:47 | disposition home or self-care (01) ==
LOC: NM 09:46
PROVIDERS: ATTEND Urology
DX: C61 Malignant neoplasm of prostate (principal); C79.51 Secondary malignant neoplasm of bone; C16.6 Malignant neoplasm of greater curvature of stomach, unspecified; C76.3 Malignant neoplasm of pelvis; C76.1 Malignant neoplasm of thorax; K80.20 Calculus of gallbladder without cholecystitis without obstruction; N26.1 Atrophy of kidney (terminal); N40.0 Benign prostatic hyperplasia without lower urinary tract symptoms; M47.815 Spondylosis without myelopathy or radiculopathy, thoracolumbar region
CPT/HCPCS: 74176; 78306; A9503

== ENCOUNTER 2021-03-15 05:15 | Emergency (ER) | payer MEDICARE, OTHER ==
--- NOTE | 2021-03-15 06:43 | Emergency Department Report ---
ED General Adult HPI - General Chief complaint: Abdominal Pain Stated complaint: ABD PAIN Time Seen by Provider: 03/15/21 06:32 Source: patient Mode of arrival: Stretcher Limitations: Physical Limitation - History of Present Illness Initial comments: 80-year-old male, history of hypertension, diabetes, CVA with right-sided deficits, chronic respiratory failure for which she wears home oxygen, recently diagnosed prostate cancer, presents to ED with cough and abdominal pain. Patient states for the last week he has had a cough. Patient states whenever he coughs he experiences pain in the right side of his abdomen. He denies pain with palpation, only with coughing. Patient denies any shortness of breath, nausea or vomiting. Patient has some swelling to bilateral lower legs, which patient states has been intermittent for "a while." He denies any history of CHF. Patient states he supposed to undergo thyroid biopsy next week. Patient is on Orgovyx for his prostate cancer. -: week(s) (1) Location: abdomen Radiation: non-radiation Quality: aching Consistency: intermittent Improves with: none Worsens with: other (Coughing) Associated Symptoms: cough. denies: fever/chills, nausea/vomiting, shortness of breath Treatments Prior to Arrival: none - Related Data Home Medications Medication Instructions Recorded Confirmed Last Taken Lasix TAB 20 mg PO DAILY 05/16/15 11/20/20 11/19/20 AtorvaSTATin [Lipitor] 40 mg PO QHS 05/03/20 11/20/20 11/19/20 Albuterol Sulfate [Proair 90 mcg INHALATION PRN 05/09/20 11/20/20 11/19/20 Respiclick] Brimonidine Tartrate 0.2% 1 drop OU HS 11/15/20 11/15/20 11/19/20 Dorzolamide 2% Eye Drop 1 drop OU HS 11/15/20 11/15/20 11/19/20 Insulin NPH Hum/Reg Insulin Hm 22 unit SQ BID 11/15/20 11/20/20 11/19/20 [Novolin 70-30 Flexpen] Latanoprost 0.005% 1 drop OU HS 11/15/20 11/15/20 11/19/20 Previous Rx's Medication Instructions Recorded Last Taken Type Clopidogrel [Plavix] 75 mg PO DAILY tablet 05/12/20 11/13/20 Rx Famotidine [Pepcid] 20 mg PO BID tablet 05/12/20 11/19/20 Rx Finasteride [Proscar] 5 mg PO DAILY tablet 05/12/20 11/19/20 Rx Sennosides/Docusate [Senokot S] 1 tab PO BID tablet 05/12/20 11/19/20 Rx Tamsulosin [Flomax] 0.4 mg PO QDAY capsule 05/12/20 11/19/20 Rx allopurinoL [Zyloprim] 300 mg PO QDAY tablet 05/12/20 11/19/20 Rx oxyCODONE /ACETAMINOPHEN [Percocet 1 tab PO Q6H PRN tablet 05/12/20 11/19/20 Rx 5/325 mg] Metoprolol 50 mg PO DAILY #30 05/19/20 11/19/20 Rx Acetaminophen/Codeine [Tylenol 1 tab PO Q6H PRN #10 tab 03/15/21 Unknown Rx /Codeine # 3 tab] Benzonatate [Tessalon Perles] 100 mg PO Q8HR PRN #20 capsule 03/15/21 Unknown Rx Allergies Allergy/AdvReac Type Severity Reaction Status Date / Time atenolol Allergy Anaphylaxis Verified 05/09/20 18:49 lisinopril Allergy Anaphylaxis Verified 05/09/20 18:49 Penicillins Allergy Hives Verified 05/09/20 18:49 iodine AdvReac Unknown Verified 11/15/20 15:28 sodium iodide AdvReac Unknown Verified 11/15/20 15:28 ED Review of Systems ROS: Stated complaint: ABD PAIN Other details as noted in HPI Comment: All other systems reviewed and negative Constitutional: denies: fever Respiratory: cough. denies: shortness of breath Cardiovascular: denies: chest pain Gastrointestinal: abdominal pain. denies: nausea, vomiting, diarrhea ED Past Medical Hx - Past Medical History Hx Hypertension: Yes Hx CVA: Yes (CVA Right Sided Deficits) Hx Heart Attack/AMI: No Hx Congestive Heart Failure: No Hx Diabetes: Yes Hx GERD: Yes Hx Liver Disease: No Hx Renal Disease: No Hx Sickle Cell Disease: No Hx Arthritis: Yes (LOWER BACK) Hx Headaches / Migraines: No Hx Seizures: No Hx Kidney Stones: No Hx Asthma: No Hx COPD: Yes Hx Tuberculosis: No Hx HIV: No - Surgical History Past Surgical History?: Yes Hx Coronary Stent: No Hx Pacemaker: No Hx Internal Defibrillator: No Additional Surgical History: RT hip - Social History Smoking Status: Former Smoker - Medications Home Medications: Home Medications Medication Instructions Recorded Confirmed Last Taken Type Lasix TAB 20 mg PO DAILY 05/16/15 11/20/20 11/19/20 History AtorvaSTATin [Lipitor] 40 mg PO QHS 05/03/20 11/20/20 11/19/20 History Albuterol Sulfate [Proair 90 mcg INHALATION PRN 05/09/20 11/20/20 11/19/20 History Respiclick] Clopidogrel [Plavix] 75 mg PO DAILY tablet 05/12/20 11/20/20 11/13/20 Rx Famotidine [Pepcid] 20 mg PO BID tablet 05/12/20 11/20/20 11/19/20 Rx Finasteride [Proscar] 5 mg PO DAILY tablet 05/12/20 11/20/20 11/19/20 Rx Sennosides/Docusate [Senokot S] 1 tab PO BID tablet 05/12/20 11/20/20 11/19/20 Rx Tamsulosin [Flomax] 0.4 mg PO QDAY capsule 05/12/20 11/20/20 11/19/20 Rx allopurinoL [Zyloprim] 300 mg PO QDAY tablet 05/12/20 11/20/20 11/19/20 Rx oxyCODONE /ACETAMINOPHEN [Percocet 1 tab PO Q6H PRN tablet 05/12/20 11/20/20 11/19/20 Rx 5/325 mg] Metoprolol 50 mg PO DAILY #30 05/19/20 11/20/20 11/19/20 Rx Brimonidine Tartrate 0.2% 1 drop OU HS 11/15/20 11/15/20 11/19/20 History Dorzolamide 2% Eye Drop 1 drop OU HS 11/15/20 11/15/20 11/19/20 History Insulin NPH Hum/Reg Insulin Hm 22 unit SQ BID 11/15/20 11/20/20 11/19/20 History [Novolin 70-30 Flexpen] Latanoprost 0.005% 1 drop OU HS 11/15/20 11/15/20 11/19/20 History Acetaminophen/Codeine [Tylenol 1 tab PO Q6H PRN #10 tab 03/15/21 Unknown Rx /Codeine # 3 tab] Benzonatate [Tessalon Perles] 100 mg PO Q8HR PRN #20 capsule 03/15/21 Unknown Rx ED Physical Exam - General Limitations: Physical Limitation General appearance: alert, in no apparent distress - Head Head exam: Present: atraumatic, normocephalic - Eye Eye exam: Present: normal appearance, EOMI - ENT ENT exam: Present: mucous membranes moist - Neck Neck exam: Present: normal inspection - Respiratory Respiratory exam: Present: decreased breath sounds (Right lung field) - Cardiovascular Cardiovascular Exam: Present: regular rate, normal rhythm - GI/Abdominal GI/Abdominal exam: Present: soft. Absent: distended, tenderness - Extremities Exam Extremities exam: Present: other (2+ pitting edema bilateral lower legs) - Neurological Exam Neurological exam: Present: alert, oriented X3, other (Baseline right-sided deficits secondary to CVA) - Psychiatric Psychiatric exam: Present: normal affect, normal mood - Skin Skin exam: Present: warm, dry, intact, normal color ED Course Vital Signs 03/15/21 03/15/21 03/15/21 06:05 06:10 06:15 Temperature 98.3 F Pulse Rate 99 H Respiratory 16 Rate Blood Pressure 129/72 Blood Pressure 129/72 [Left] O2 Sat by Pulse 93 91 89 Oximetry 03/15/21 03/15/21 03/15/21 06:26 06:31 06:45 Temperature Pulse Rate Respiratory Rate Blood Pressure 139/72 139/72 Blood Pressure [Left] O2 Sat by Pulse 99 100 99 Oximetry 03/15/21 03/15/21 03/15/21 07:01 07:16 07:30 Temperature Pulse Rate Respiratory Rate Blood Pressure 153/78 136/71 Blood Pressure [Left] O2 Sat by Pulse 100 100 94 Oximetry 03/15/21 03/15/21 03/15/21 07:46 08:00 08:16 Temperature Pulse Rate Respiratory Rate Blood Pressure 136/71 136/71 136/71 Blood Pressure [Left] O2 Sat by Pulse 91 89 89 Oximetry 03/15/21 03/15/21 03/15/21 08:30 08:46 09:00 Temperature Pulse Rate Respiratory Rate Blood Pressure 140/65 Blood Pressure [Left] O2 Sat by Pulse 94 97 96 Oximetry 03/15/21 03/15/21 03/15/21 09:16 09:30 09:46 Temperature Pulse Rate Respiratory Rate Blood Pressure 128/60 128/60 Blood Pressure [Left] O2 Sat by Pulse 98 93 96 Oximetry 03/15/21 03/15/21 10:00 10:16 Temperature Pulse Rate Respiratory Rate Blood Pressure 128/60 128/60 Blood Pressure [Left] O2 Sat by Pulse 89 87 Oximetry ED Medical Decision Making - Lab Data Result diagrams: 03/15/21 06:54 03/15/21 06:54 - Radiology Data Radiology results: report reviewed, image reviewed - Medical Decision Making 80-year-old male presents to ED with cough and abdominal pain. Denies chest pain or shortness of breath. Daughter reports patient has history of prostate cancer which has spread to the lung and spine. CT scan shows evidence of this, however no other acute findings. WBC count of 20 however patient is afebrile. No evidence of intra-abdominal infection. UA and chest x-ray are negative. No explanation for elevated WBCs. Patient states he is not on any steroid treatment at this time. States he is not receiving any injections for his white blood cell count. Will discharge at this time with instructions to follow-up with his private physicians. Will discharge with medication for pain. I spoke with patient's daughter who stated the last time he was given Ultram for pain it caused hallucinations. She is requesting something that is not as strong. Will prescribe Tylenol 3. Return precautions given. - Differential Diagnosis UTI, bowel obstruction, pneumonia Critical care attestation.: If time is entered above; I have spent that time in minutes in the direct care of this critically ill patient, excluding procedure time. ED Disposition Clinical Impression: Abdominal pain, Metastatic cancer Disposition: - TO HOME OR SELFCARE Is pt being admited?: No Condition: Stable Instructions: Abdominal Pain, Adult, [id number] Prescriptions: Benzonatate [Tessalon Perles] 100 mg PO Q8HR PRN #20 capsule PRN Reason: Cough Acetaminophen/Codeine [Tylenol /Codeine # 3 tab] 1 tab PO Q6H PRN #10 tab PRN Reason: Pain , Severe (7-10) Referrals: PRIMARY CARE, [Primary Care Provider] - 3-5 Days Time of Disposition: 09:44
[2021-03-15 07:45] LABS: Hematocrit 28.7 % (35.5-45.6); Hemoglobin 9.1 gm/dl (11.8-15.2); Mean Corpuscular HGB Conc 32 % (32-34); Mean Corpuscular Volume 90 fl (84-94); Platelet Count 446 K/mm3 (140-440); Red Blood Count 3.19 M/mm3 (3.65-5.03); Red Cell Distribution Width 18.2 % (13.2-15.2)
[2021-03-15 08:02] LABS: Alanine Aminotransferase 14 units/L (7-56); Albumin 3.3 g/dL (3.9-5); BUN/Creatinine Ratio 36; Blood Urea Nitrogen 32 mg/dL (9-20); Calcium 10.1 mg/dL (8.4-10.2); Hemolysis Index 0
--- NOTE | 2021-03-15 08:08 | XRay Report ---
CHEST 1 VIEW INDICATION: cough. COMPARISON: 05/18/2020 FINDINGS: Support devices: None. Heart: Within normal limits. Lungs/Pleura: There is poor inspiration with mild bibasilar atelectatic changes. Elevated right hemid iaphragm is again noted. No convincing infiltrate, pleural effusion or pneumothorax. Additional findings: None. IMPRESSION: Grossly negative expiratory AP chest. No change since 05/18/2020. Signer Name: William Freeman Jr, MD Signed: 03/15/2021 8:04 AM Workstation Name: [id number]
[2021-03-15 08:29] LABS: Bilirubin,Urine NEG (Negative); Blood,Urine NEG (Negative); Color,Urine Yellow (Yellow); Hyaline Casts,Urine 3 /LPF; Protein,Urine <15 mg/dL mg/dL (Negative); Urobilinogen,Urine < 2.0 mg/dL (<2.0); WBC,Urine < 1.0 /HPF (0.0-6.0)
--- NOTE | 2021-03-15 09:06 | Cat Scan Report ---
CT ABDOMEN AND PELVIS WITHOUT CONTRAST HISTORY: abd pain COMPARISON: 12/25/2020 TECHNIQUE: Axial CT images were obtained through the abdomen and pelvis without IV contrast. Sagittal and coronal reformatted images. All CT scans at this location are performed using CT dose reduction for ALARA by means of automated exposure control. FINDINGS: CT ABDOMEN: Lung Bases: Masslike consolidation in the left lower lobe is again noted and is increased in size to 5.4 x 3.3 cm in axial plane. Infiltrate or atelectatic changes have developed in the right lower lobe . Scattered tiny nodular densities in the lung bases are again noted and unchanged. Liver: No significant abnormality. Biliary: Multiple small calcified stones are identified in the gallbladder. No abnormal dilatation, w all thickening or pericholecystic fluid. No biliary dilatation. Spleen: No significant abnormality. Unenlarged. Pancreas: No significant abnormality. Adrenals: No significant abnormality. Kidneys: Few scattered renal cysts measuring up to 1.5 cm appears stable. No nephrolithiasis or hydro nephrosis. Lymphatics: There appear to be a few enlarged retrocrural lymph nodes near the aortic hiatus which patel ve decreased in size since the previous exam. The largest lymph node in the left retrocrural region h as decreased from 2.1 cm to 1.6 cm in short axis. No additional adenopathy is detected. Vasculature: Stable mild aortic and iliac calcifications. Bowel/Peritoneum: Mild diverticulosis of the distal colon is again noted. No evidence for obstruction or focal inflammation. Normal appendix. No evidence for free fluid, fluid collection or free air. CT PELVIS: : Normal bladder. The prostate gland is mildly enlarged. Osseous Structures: Multiple sclerotic and lytic lesions are identified throughout the thoracolumbar spine and pelvis which appears significantly increased since the previous exam. No pathologic fractur e is detected. Additional Findings: None IMPRESSION: No acute inflammatory process is identified. Increased size of a masslike left lower lobe lesion. Improvement in retrocrural adenopathy. Increased diffuse bony metastasis. Cholelithiasis. Diverticulosis of the distal colon. Signer Name: William Freeman Jr, MD Signed: 03/15/2021 9:01 AM Workstation Name: [id number]
[2021-03-15 09:53] VITALS: BP 128/60
[2021-03-15 12:13] LABS: Anisocytosis 1+; Band Neutrophils # (Manual) 0.2 K/mm3; Macrocytosis Few; Myelocytes # (Manual) 0.2 K/mm3; Platelet Estimate Consistent w Auto; Total Cells Counted 100
== END 2021-03-15 10:43 | disposition home or self-care (01) ==
LOC: ED 05:15
DX: C61 Malignant neoplasm of prostate (principal); C78.00 Secondary malignant neoplasm of unspecified lung; C79.51 Secondary malignant neoplasm of bone; R10.9 Unspecified abdominal pain; I10 Essential (primary) hypertension; E11.9 Type 2 diabetes mellitus without complications; K21.9 Gastro-esophageal reflux disease without esophagitis; Z98.890 Other specified postprocedural states; Z79.899 Other long term (current) drug therapy; Z88.0 Allergy status to penicillin; Z88.8 Allergy status to other drugs, medicaments and biological substances; Z79.4 Long term (current) use of insulin
CPT/HCPCS: 36415; 71045; 74176; 80053; 81001; 83690; 83880; 85007; 85025

== ENCOUNTER 2021-03-25 16:30 | Emergency (ER) | payer MEDICARE, OTHER ==
[~2021-03-25 16:30] MED LIST changes: -BACTERIOSTATIC SODIUM CHLORIDE 0.9% 30 ML VIAL INFILTRATI ONE; -LACTATED RINGERS 1,000 ML IV SCH; +SODIUM BICARB 8.4% 50 MEQ/50 ML SYRINGE IV ONE
--- NOTE | 2021-03-25 16:52 | Emergency Department Report ---
ED CPR HPI - General Chief Complaint: Cardiac Arrest/CPR Stated Complaint: CARDIAC ARREST Time Seen by Provider: 03/25/21 16:51 Source: EMS (Verbal report received from emergency medical services. EMS documentation not available at time of chart dictation ), RN notes reviewed, old records reviewed Mode of arrival: Stretcher Limitations: Altered Mental Status, Physical Limitation - History of Present Illness Initial Comments: The patient is an 80-year-old gentleman. He is brought to the hospital by emergency medical services as an [id number] nontraumatic cardiac arrest. Patient arrives being bagged with a Kalpesh airway, receiving active CPR, with a GCS of 3T. History obtained from EMS entirely. They reports that the patient stopped speaking and became unresponsive with family members. They report that they arrived on scene at approximately 4:00 PM today. They state that the patient was not responsive with a GCS of 3, not breathing and pulseless. EMS further stated that family did not initiate bystander CPR. EMS placed his Kalpesh airway. They perform aggressive CPR. Patient receives epinephrine x4 in the field. Patient was under the care of emergency medical services for approximately 25 minutes, from the time of the first medical contact, to his arrival here to this emergency room. In that time, the patient did not have a shockable rhythm. Upon arrival to this emergency room, pupils are dilated, and do not react to light. Patient continues to receive aggressive CPR. He received standard ACLS medications. Unfortunately, pulses are not obtained. Repeat rhythm checks show asystole. Bedside transthoracic echocardiography demonstrates no coordinated ventricular activity, and cardiac standstill. Given advanced age, prolonged downtime, lack of pulses, lack of shockable rhythm, and medical futility, resuscitative efforts were subsequently terminated. At the moment, friends, family not available for collateral information/additional information. Complaint: stopped breathing -: minute(s) Place: home Initial Findings in the Field: unresponsive, no respirations, no pulse, PEA ROSC in the Field: No Associated Injuries: No Treatments Prior to Arrival: other airway device, chest compressions, epinephrine mgs # (4) - Related Data Home Medications Medication Instructions Recorded Confirmed Last Taken Lasix TAB 20 mg PO DAILY 05/16/15 11/20/20 11/19/20 AtorvaSTATin [Lipitor] 40 mg PO QHS 05/03/20 11/20/20 11/19/20 Albuterol Sulfate [Proair 90 mcg INHALATION PRN 05/09/20 11/20/20 11/19/20 Respiclick] Brimonidine Tartrate 0.2% 1 drop OU HS 11/15/20 11/15/20 11/19/20 Dorzolamide 2% Eye Drop 1 drop OU HS 11/15/20 11/15/20 11/19/20 Insulin NPH Hum/Reg Insulin Hm 22 unit SQ BID 11/15/20 11/20/20 11/19/20 [Novolin 70-30 Flexpen] Latanoprost 0.005% 1 drop OU HS 11/15/20 11/15/20 11/19/20 Previous Rx's Medication Instructions Recorded Last Taken Type Clopidogrel [Plavix] 75 mg PO DAILY tablet 05/12/20 11/13/20 Rx Famotidine [Pepcid] 20 mg PO BID tablet 05/12/20 11/19/20 Rx Finasteride [Proscar] 5 mg PO DAILY tablet 05/12/20 11/19/20 Rx Sennosides/Docusate [Senokot S] 1 tab PO BID tablet 05/12/20 11/19/20 Rx Tamsulosin [Flomax] 0.4 mg PO QDAY capsule 05/12/20 11/19/20 Rx allopurinoL [Zyloprim] 300 mg PO QDAY tablet 05/12/20 11/19/20 Rx oxyCODONE /ACETAMINOPHEN [Percocet 1 tab PO Q6H PRN tablet 05/12/20 11/19/20 Rx 5/325 mg] Metoprolol 50 mg PO DAILY #30 05/19/20 11/19/20 Rx Acetaminophen/Codeine [Tylenol 1 tab PO Q6H PRN #10 tab 03/15/21 Unknown Rx /Codeine # 3 tab] Benzonatate [Tessalon Perles] 100 mg PO Q8HR PRN #20 capsule 03/15/21 Unknown Rx Allergies Allergy/AdvReac Type Severity Reaction Status Date / Time atenolol Allergy Anaphylaxis Verified 05/09/20 18:49 lisinopril Allergy Anaphylaxis Verified 05/09/20 18:49 Penicillins Allergy Hives Verified 05/09/20 18:49 iodine AdvReac Unknown Verified 11/15/20 15:28 sodium iodide AdvReac Unknown Verified 11/15/20 15:28 ED Review of Systems ROS: Stated complaint: CARDIAC ARREST Other details as noted in HPI Comment: Unobtainable due to pts medical conditions ED Past Medical Hx - Past Medical History Hx Hypertension: Yes Hx CVA: Yes (CVA Right Sided Deficits) Hx Heart Attack/AMI: No Hx Congestive Heart Failure: No Hx Diabetes: Yes Hx GERD: Yes Hx Liver Disease: No Hx Renal Disease: No Hx Sickle Cell Disease: No Hx Arthritis: Yes (LOWER BACK) Hx Headaches / Migraines: No Hx Seizures: No Hx Kidney Stones: No Hx Asthma: No Hx COPD: Yes Hx Tuberculosis: No Hx HIV: No - Surgical History Hx Coronary Stent: No Hx Pacemaker: No Hx Internal Defibrillator: No Additional Surgical History: RT hip - Social History Smoking Status: Former Smoker - Medications Home Medications: Home Medications Medication Instructions Recorded Confirmed Last Taken Type Lasix TAB 20 mg PO DAILY 05/16/15 11/20/20 11/19/20 History AtorvaSTATin [Lipitor] 40 mg PO QHS 05/03/20 11/20/20 11/19/20 History Albuterol Sulfate [Proair 90 mcg INHALATION PRN 05/09/20 11/20/20 11/19/20 History Respiclick] Clopidogrel [Plavix] 75 mg PO DAILY tablet 05/12/20 11/20/20 11/13/20 Rx Famotidine [Pepcid] 20 mg PO BID tablet 05/12/20 11/20/20 11/19/20 Rx Finasteride [Proscar] 5 mg PO DAILY tablet 05/12/20 11/20/20 11/19/20 Rx Sennosides/Docusate [Senokot S] 1 tab PO BID tablet 05/12/20 11/20/20 11/19/20 Rx Tamsulosin [Flomax] 0.4 mg PO QDAY capsule 05/12/20 11/20/20 11/19/20 Rx allopurinoL [Zyloprim] 300 mg PO QDAY tablet 05/12/20 11/20/20 11/19/20 Rx oxyCODONE /ACETAMINOPHEN [Percocet 1 tab PO Q6H PRN tablet 05/12/20 11/20/20 11/19/20 Rx 5/325 mg] Metoprolol 50 mg PO DAILY #30 05/19/20 11/20/20 11/19/20 Rx Brimonidine Tartrate 0.2% 1 drop OU HS 11/15/20 11/15/20 11/19/20 History Dorzolamide 2% Eye Drop 1 drop OU HS 11/15/20 11/15/20 11/19/20 History Insulin NPH Hum/Reg Insulin Hm 22 unit SQ BID 11/15/20 11/20/20 11/19/20 History [Novolin 70-30 Flexpen] Latanoprost 0.005% 1 drop OU HS 11/15/20 11/15/20 11/19/20 History Acetaminophen/Codeine [Tylenol 1 tab PO Q6H PRN #10 tab 03/15/21 Unknown Rx /Codeine # 3 tab] Benzonatate [Tessalon Perles] 100 mg PO Q8HR PRN #20 capsule 03/15/21 Unknown Rx ED Physical Exam - General Limitations: Altered Mental Status, Physical Limitation General appearance: obtunded, obese - Head Head exam: Present: atraumatic, normocephalic - Eye Eye exam: Present: other (Pupils do not react to light) - ENT ENT exam: Present: normal exam, mucous membranes moist, normal external ear exam, other (Kalpesh airway noted in the oral for) - Neck Neck exam: Present: normal inspection - Respiratory Respiratory exam: Absent: normal lung sounds bilaterally (No breath sounds appreciated) - Cardiovascular Cardiovascular Exam: Present: other (The patient is pulseless). Absent: regular rate, normal rhythm - GI/Abdominal GI/Abdominal exam: Present: soft - Rectal Rectal exam: Present: deferred - Extremities Exam Extremities exam: Present: normal inspection - Back Exam Back exam: Present: normal inspection - Neurological Exam Neurological exam: Present: altered, other (GCS 3 T) - Psychiatric Psychiatric exam: Present: other (The patient is nonverbal) - Skin Skin exam: Present: warm, dry, intact, normal color. Absent: rash ED Medical Decision Making - Medical Decision Making Differential diagnosis, including the not limited to: Acute coronary syndrome, pulmonary embolism, intracranial hemorrhage, sepsis Critical care attestation.: If time is entered above; I have spent that time in minutes in the direct care of this critically ill patient, excluding procedure time. ED Disposition Clinical Impression: Cardiac arrest Disposition: [id number] Is pt being admited?: No Does the pt Need Aspirin: No Condition: Undetermined
== END 2021-03-25 20:15 ==
LOC: ED 16:30
DX: I46.9 Cardiac arrest, cause unspecified (principal); I10 Essential (primary) hypertension; E11.8 Type 2 diabetes mellitus with unspecified complications; M19.90 Unspecified osteoarthritis, unspecified site; J44.9 Chronic obstructive pulmonary disease, unspecified; Z98.890 Other specified postprocedural states; Z88.8 Allergy status to other drugs, medicaments and biological substances; Z88.0 Allergy status to penicillin; Z88.4 Allergy status to anesthetic agent; Z91.040 Latex allergy status
CPT/HCPCS: 92950; 99285